=== PATIENT | female | born 1940 | race Caucasian/White ===

== ENCOUNTER → 2016-08-16 | Outpatient (REF) | payer MEDICARE, OTHER ==
[~2016-08-16] MED LIST: ASPI81TA85 PO; ATEN50TA2 PO; BENI20TA5 PO; HYDR12CA PO; METF500T PO; NIFE30TA66 PO; SIMV40TA2 PO; VITA500C14 PO; vitamin d
[2016-08-16 13:11] LABS: ALBUMIN 3.9 GM/DL (3.2-5.2); ALBUMIN/GLOBULIN RATIO 1.08 (1.00-1.93); ALKALINE PHOSPHATASE 51 U/L (45-117); ALT/SGPT 39 U/L (12-78); ANION GAP 11 MEQ/L (8-16); AST/SGOT 29 U/L (15-37); BILIRUBIN,TOTAL 0.6 MG/DL (0.2-1.0); BLOOD UREA NITROGEN 13 MG/DL (7-18); CALCIUM LEVEL 9.1 MG/DL (8.8-10.2); CARBON DIOXIDE LEVEL 28 MEQ/L (21-32); CHLORIDE LEVEL 104 MEQ/L (98-107); CHOLESTEROL LEVEL 167 MG/DL (<200); CREATININE FOR GFR 0.72 MG/DL (0.55-1.02); GLOMERULAR FILTRATION RATE > 60.0 (>39); GLUCOSE, FASTING 141 MG/DL (83-110); POTASSIUM SERUM 4.2 MEQ/L (3.5-5.1); SODIUM LEVEL 143 MEQ/L (136-145); TOTAL PROTEIN 7.5 GM/DL (6.4-8.2); TRIGLYCERIDES LEVEL 169 MG/DL (<150)
== END ==
LOC: M SFHCADAM 08:21
PROVIDERS: ATTEND Family Medicine
DX: E11.9 Type 2 diabetes mellitus without complications (principal); E78.4 Other hyperlipidemia

== ENCOUNTER → 2017-01-01 | Outpatient (CLI) | payer MEDICARE, OTHER ==
[2017-01-01 16:20] LABS: BASO # 0.1 K/mm3 (0.0-0.2); BASO % 0.6 % (0.0-1.0); EOS # 0.2 K/mm3 (0.0-0.50); EOS % 1.4 % (0.0-3.0); LARGE UNSTAINED CELL # 0.2 K/mm3 (0.0-0.4); LARGE UNSTAINED CELL % 1.6 % (0.0-4.0); LYMPH # 2.5 K/mm3 (1.5-4.5); LYMPH % 23.2 % (24.0-44.0); MEAN CORPUSCULAR HEMOGLOBIN 32.3 pg (27.0-33.0); MEAN CORPUSCULAR HGB CONC 33.3 g/dl (32.0-36.5); MEAN CORPUSCULAR VOLUME 97.1 fl (80.0-96.0); MONO # 0.7 K/mm3 (0.0-0.8); MONO % 6.9 % (0.0-5.0); NEUTROPHILS # 6.8 K/mm3 (1.8-7.7); NEUTROPHILS % 66.3 % (36.0-66.0); PLATELET COUNT, AUTOMATED 367 k/mm3 (150-450); RED CELL DISTRIBUTION WIDTH 12.3 % (11.5-14.5); WHITE BLOOD COUNT 10.2 K/mm3 (4.0-10.0)
[2017-01-01 16:39] LABS: ALBUMIN 3.9 GM/DL (3.2-5.2); ALBUMIN/GLOBULIN RATIO 0.93 (1.00-1.93); ALKALINE PHOSPHATASE 64 U/L (45-117); ALT/SGPT 56 U/L (12-78); ANION GAP 13 MEQ/L (8-16); AST/SGOT 52 U/L (15-37); BILIRUBIN,TOTAL 0.3 MG/DL (0.2-1.0); BLOOD UREA NITROGEN 15 MG/DL (7-18); CALCIUM LEVEL 9.8 MG/DL (8.8-10.2); CARBON DIOXIDE LEVEL 27 MEQ/L (21-32); CHLORIDE LEVEL 99 MEQ/L (98-107); CREATININE FOR GFR 0.87 MG/DL (0.55-1.02); GLOMERULAR FILTRATION RATE > 60.0 (>39); GLUCOSE, FASTING 194 MG/DL (83-110); MAGNESIUM LEVEL 1.8 MG/DL (1.8-2.4); POTASSIUM SERUM 3.7 MEQ/L (3.5-5.1); SODIUM LEVEL 139 MEQ/L (136-145); TOTAL PROTEIN 8.1 GM/DL (6.4-8.2)
== END ==
LOC: M ADAMS 13:02
PROVIDERS: ATTEND Physician Assistant
DX: R53.83 Other fatigue (principal)

== ENCOUNTER → 2017-01-19 | Outpatient (CLI) | payer MEDICARE, OTHER ==
[~2017-01-19] MED LIST changes: +BENI1TAB PO; -BENI20TA5 PO; -METF500T PO; +METF500T13 PO
--- NOTE | 2017-01-21 20:01 | ECHO ---
DATE OF PROCEDURE: 01/21/2017 REFERRING PROVIDER: Layla Peguero DO PATIENT LOCATION: Outpatient REASON FOR ECHOCARDIOGRAM: Abnormal EKG 2D MEASUREMENTS: IVS: 1.3 cm LV: 4.1 cm LVPW: 1.4 cm LA: 3.0 Aortic root: 3.0 cm IVC: 1.5 cm DOPPLER MEASUREMENTS: Peak velocity across the aortic valve: 1.5 m/s Peak velocity across the LVOT: 0.85 m/s Mitral E: 0.78 Mitral A: 0.95 Ratio 0.81 2D COMMENTS: 1. Mildly increased left ventricular wall thickness with normal left ventricular size and normal global left ventricular systolic function. The estimated global left ventricular systolic ejection fraction is 65% to 70%. 2. Normal left atrium. Normal right atrium and right ventricle. 3. The atrial septum appeared to be normal without evidence of defect or shunt. 4. Normal aortic root. 5. Trace pericardial effusion noted posteriorly at the base of the left ventricle, no evidence of cardiac tamponade. 6. Minimally calcified aortic valve with normal leaflet excursion. Normal mitral valve and tricuspid valve. The pulmonic valve and proximal pulmonary artery branches were not well visualized. 7. The inferior vena cava was normal in size, central venous pressure is most likely normal. DOPPLER: Only trace mitral regurgitation detected in limited views. IMPRESSION: 1. Normal global left ventricular systolic function with mild concentric left ventricular hypertrophy. There are some features of left ventricular diastolic dysfunction, grade 1. 2. Aortic valve sclerosis without stenosis or aortic regurgitation. 3. Trace mitral regurgitation. 4. Trace pericardial effusion noted, no evidence of cardiac tamponade. [facility]
== END ==
LOC: M CARPUL 15:08
PROVIDERS: ATTEND Family Medicine
DX: R94.31 Abnormal electrocardiogram [ECG] [EKG] (principal)

== ENCOUNTER → 2017-03-01 | Outpatient (REF) | payer OTHER ==
[2017-03-01 12:33] LABS: ANION GAP 9 MEQ/L (8-16); BLOOD UREA NITROGEN 16 MG/DL (7-18); CALCIUM LEVEL 8.9 MG/DL (8.8-10.2); CARBON DIOXIDE LEVEL 27 MEQ/L (21-32); CHLORIDE LEVEL 106 MEQ/L (98-107); CREATININE FOR GFR 0.62 MG/DL (0.55-1.02); GLOMERULAR FILTRATION RATE > 60.0 (>39); GLUCOSE, FASTING 146 MG/DL (83-110); POTASSIUM SERUM 4.1 MEQ/L (3.5-5.1); SODIUM LEVEL 142 MEQ/L (136-145)
== END ==
LOC: M SFHCADAM 09:32
PROVIDERS: ATTEND Family Medicine
DX: E11.9 Type 2 diabetes mellitus without complications (principal); D69.2 Other nonthrombocytopenic purpura; E78.4 Other hyperlipidemia; I11.9 Hypertensive heart disease without heart failure
CPT/HCPCS: 80048; 83036; G0463

== ENCOUNTER → 2017-08-23 | Outpatient (REF) | payer OTHER ==
[2017-08-23 12:36] LABS: HEMATOCRIT 45.3 % (36.0-47.0); MEAN CORPUSCULAR HEMOGLOBIN 31.5 pg (27.0-33.0); MEAN CORPUSCULAR HGB CONC 33.1 g/dl (32.0-36.5); MEAN CORPUSCULAR VOLUME 95.2 fl (80.0-96.0); PLATELET COUNT, AUTOMATED 346 10^3/uL (150-450); RED BLOOD COUNT 4.76 10^6/uL (4.00-5.40); RED CELL DISTRIBUTION WIDTH 12.6 % (11.5-14.5); WHITE BLOOD COUNT 7.9 10^3/uL (4.0-10.0)
[2017-08-23 13:08] LABS: ALBUMIN 3.6 GM/DL (3.2-5.2); ALBUMIN/GLOBULIN RATIO 0.92 (1.00-1.93); ALKALINE PHOSPHATASE 51 U/L (45-117); ALT/SGPT 22 U/L (12-78); ANION GAP 10 MEQ/L (8-16); AST/SGOT 19 U/L (7-37); BILIRUBIN,TOTAL 0.5 MG/DL (0.2-1.0); BLOOD UREA NITROGEN 14 MG/DL (7-18); CARBON DIOXIDE LEVEL 30 MEQ/L (21-32); CHLORIDE LEVEL 102 MEQ/L (98-107); CHOLESTEROL LEVEL 166 MG/DL (<200); CHOLESTEROL RISK RATIO 3.458 (<5); GLOMERULAR FILTRATION RATE > 60.0 (>39); GLUCOSE, FASTING 165 MG/DL (70-100); HDL CHOLESTEROL 48 MG/DL (>40); LDL CHOLESTEROL 73.2 MG/DL (<100); NON-HDL-C 118 MG/DL; POTASSIUM SERUM 4.3 MEQ/L (3.5-5.1); SODIUM LEVEL 142 MEQ/L (136-145); TOTAL PROTEIN 7.5 GM/DL (6.4-8.2); TRIGLYCERIDES LEVEL 224 MG/DL (<150)
[2017-08-23 13:18] LABS: MALB URINE SIEMENS 36.9 MG/L; MAU/CREAT RATIO 16.6 MCG/MG (0.0-30.0)
[2017-08-23 13:28] LABS: ESTIMATED AVERAGE GLUCOSE 206 MG/DL (60-110); HEMOGLOBIN A1c 8.8 %
== END ==
LOC: M SFHCADAM 08:19
DX: D69.2 Other nonthrombocytopenic purpura (principal); E11.9 Type 2 diabetes mellitus without complications; E78.4 Other hyperlipidemia
CPT/HCPCS: 80053

== ENCOUNTER → 2017-11-21 | Outpatient (REF) | payer OTHER ==
[2017-11-21 14:02] LABS: ESTIMATED AVERAGE GLUCOSE 194 MG/DL (60-110); HEMOGLOBIN A1c 8.4 %
[2017-11-21 14:05] LABS: ANION GAP 9 MEQ/L (8-16); BLOOD UREA NITROGEN 16 MG/DL (7-18); CALCIUM LEVEL 9.8 MG/DL (8.8-10.2); CARBON DIOXIDE LEVEL 27 MEQ/L (21-32); CHLORIDE LEVEL 103 MEQ/L (98-107); CREATININE FOR GFR 0.73 MG/DL (0.55-1.30); GLOMERULAR FILTRATION RATE > 60.0 (>39); GLUCOSE, FASTING 231 MG/DL (70-100); POTASSIUM SERUM 4.1 MEQ/L (3.5-5.1); SODIUM LEVEL 139 MEQ/L (136-145)
== END ==
LOC: M SFHCADAM 09:35
DX: E11.9 Type 2 diabetes mellitus without complications (principal)
CPT/HCPCS: 83036

== ENCOUNTER → 2018-08-14 | Outpatient (REF) | payer OTHER ==
[~2018-08-14] MED LIST changes: -BENI1TAB PO; +BENI1TAB3 PO; +NIFE30TA50 PO; -NIFE30TA66 PO
[2018-08-14 13:47] LABS: MAU/CREAT RATIO 43.1 MCG/MG (0.0-30.0)
[2018-08-14 13:58] LABS: HEMOGLOBIN A1c 7.4 %
[2018-08-14 14:08] LABS: BLOOD UREA NITROGEN 15 MG/DL (7-18); CALCIUM LEVEL 9.4 MG/DL (8.8-10.2); CARBON DIOXIDE LEVEL 29 MEQ/L (21-32); CHLORIDE LEVEL 102 MEQ/L (98-107); CREATININE FOR GFR 0.78 MG/DL (0.55-1.30); GLOMERULAR FILTRATION RATE > 60.0 (>39); GLUCOSE, FASTING 118 MG/DL (70-100); POTASSIUM SERUM 4.1 MEQ/L (3.5-5.1); SODIUM LEVEL 141 MEQ/L (136-145)
[2018-08-14 14:09] LABS: ALBUMIN 3.6 GM/DL (3.2-5.2); ALT/SGPT 27 U/L (12-78); BILIRUBIN,TOTAL 0.4 MG/DL (0.2-1.0); CHOLESTEROL LEVEL 140 MG/DL (<200); CHOLESTEROL RISK RATIO 3.111 (<5); HDL CHOLESTEROL 45 MG/DL (>40); LDL CHOLESTEROL 35 MG/DL (<100); NON-HDL-C 95 MG/DL; TOTAL PROTEIN 6.9 GM/DL (6.4-8.2); TRIGLYCERIDES LEVEL 299 MG/DL (<150)
== END ==
LOC: M SFHCADAM 10:53
PROVIDERS: ATTEND Family Medicine
DX: E11.9 Type 2 diabetes mellitus without complications (principal); E78.49 Other hyperlipidemia

== ENCOUNTER → 2019-03-05 | Outpatient (REF) | payer MEDICARE ==
[~2019-03-05] MED LIST changes: +METF10004 PO; +VITA-158 PO
[2019-03-05 19:48] LABS: BLOOD UREA NITROGEN 22 MG/DL (7-18); CALCIUM LEVEL 9.8 MG/DL (8.8-10.2); CARBON DIOXIDE LEVEL 28 MEQ/L (21-32); CHLORIDE LEVEL 103 MEQ/L (98-107); CREATININE FOR GFR 0.81 MG/DL (0.55-1.30); GLOMERULAR FILTRATION RATE > 60.0 (>39); GLUCOSE, FASTING 156 MG/DL (70-100); POTASSIUM SERUM 4.4 MEQ/L (3.5-5.1); SODIUM LEVEL 139 MEQ/L (136-145)
[2019-03-05 20:42] LABS: HEMOGLOBIN A1c 6.6 %
== END ==
LOC: M SFHCADAM 13:58
PROVIDERS: ATTEND Family Medicine
DX: E11.9 Type 2 diabetes mellitus without complications (principal)

== ENCOUNTER → 2019-09-13 | Outpatient (REF) | payer MEDICARE ==
[~2019-09-13] MED LIST changes: -SIMV40TA2 PO; +SIMV40TA20 PO
[2019-09-13 13:14] LABS: CREATININE, URINE 77.4 MG/DL; MALB URINE SIEMENS 15.5 MG/L
[2019-09-13 13:36] LABS: HEMOGLOBIN A1c 6.6 %
[2019-09-13 13:39] LABS: ALBUMIN 3.9 GM/DL (3.2-5.2); ALT/SGPT 24 U/L (12-78); BILIRUBIN,TOTAL 0.6 MG/DL (0.2-1.0); BLOOD UREA NITROGEN 16 MG/DL (7-18); CALCIUM LEVEL 10.2 MG/DL (8.8-10.2); CARBON DIOXIDE LEVEL 29 MEQ/L (21-32); CHLORIDE LEVEL 101 MEQ/L (98-107); CHOLESTEROL LEVEL 144 MG/DL (<200); CHOLESTEROL RISK RATIO 2.823 (<5); CREATININE FOR GFR 0.62 MG/DL (0.55-1.30); GLOMERULAR FILTRATION RATE > 60.0 (>39); GLUCOSE, FASTING 100 MG/DL (70-100); HDL CHOLESTEROL 51 MG/DL (>40); LDL CHOLESTEROL 64 MG/DL (<100); NON-HDL-C 93 MG/DL; POTASSIUM SERUM 4.1 MEQ/L (3.5-5.1); SODIUM LEVEL 139 MEQ/L (136-145); TOTAL PROTEIN 7.7 GM/DL (6.4-8.2); TRIGLYCERIDES LEVEL 144 MG/DL (<150)
== END ==
LOC: M SFHCADAM 08:32
PROVIDERS: ATTEND Family Medicine
DX: E11.9 Type 2 diabetes mellitus without complications (principal); E78.5 Hyperlipidemia, unspecified

== ENCOUNTER → 2020-03-24 | Outpatient (REF) | payer MEDICARE ==
[~2020-03-24] MED LIST changes: -ASPI81TA85 PO; +ASPI81TA86 PO
[2020-03-24 12:53] LABS: BLOOD UREA NITROGEN 17 MG/DL (7-18); CARBON DIOXIDE LEVEL 28 MEQ/L (21-32); CHLORIDE LEVEL 103 MEQ/L (98-107); CREATININE FOR GFR 0.64 MG/DL (0.55-1.30); GLOMERULAR FILTRATION RATE > 60.0 (>39); GLUCOSE, FASTING 145 MG/DL (70-100); POTASSIUM SERUM 4.4 MEQ/L (3.5-5.1); SODIUM LEVEL 140 MEQ/L (136-145)
[2020-03-24 13:02] LABS: HEMOGLOBIN A1c 6.6 %
== END ==
LOC: M SFHCADAM 12:10
PROVIDERS: ATTEND Family Medicine
DX: I11.9 Hypertensive heart disease without heart failure (principal)

== ENCOUNTER → 2020-11-03 | Outpatient (REF) | payer MEDICARE ==
[2020-11-03 17:42] LABS: HEMATOCRIT 45.4 % (36.0-47.0); HEMOGLOBIN 14.7 g/dl (12.0-15.5); MEAN CORPUSCULAR HEMOGLOBIN 31.2 pg (27.0-33.0); MEAN CORPUSCULAR HGB CONC 32.4 g/dl (32.0-36.5); MEAN CORPUSCULAR VOLUME 96.4 fl (80.0-96.0); PLATELET COUNT, AUTOMATED 385 10^3/uL (150-450); RED BLOOD COUNT 4.71 10^6/uL (4.00-5.40); WHITE BLOOD COUNT 8.2 10^3/uL (4.0-10.0)
[2020-11-03 18:05] LABS: ALBUMIN 3.9 GM/DL (3.2-5.2); ALT/SGPT 36 U/L (12-78); BILIRUBIN,TOTAL 0.4 MG/DL (0.2-1.0); BLOOD UREA NITROGEN 14 MG/DL (7-18); CALCIUM LEVEL 9.8 MG/DL (8.8-10.2); CARBON DIOXIDE LEVEL 28 MEQ/L (21-32); CHLORIDE LEVEL 101 MEQ/L (98-107); CHOLESTEROL LEVEL 153 MG/DL (<200); CREATININE FOR GFR 0.52 MG/DL (0.55-1.30); GLOMERULAR FILTRATION RATE > 60.0 (>39); GLUCOSE, FASTING 102 MG/DL (70-100); HDL CHOLESTEROL 51 MG/DL (>40); LDL CHOLESTEROL 63 MG/DL (<100); NON-HDL-C 102 MG/DL; POTASSIUM SERUM 4.3 MEQ/L (3.5-5.1); SODIUM LEVEL 140 MEQ/L (136-145); TOTAL PROTEIN 7.8 GM/DL (6.4-8.2); TRIGLYCERIDES LEVEL 197 MG/DL (<150)
[2020-11-03 18:17] LABS: CREATININE, URINE 76.4 MG/DL; MALB URINE SIEMENS 32.7 MG/L; MAU/CREAT RATIO 42.8 MCG/MG (0.0-30.0)
[2020-11-03 18:29] LABS: HEMOGLOBIN A1c 6.8 %
== END ==
LOC: M SFHCADAM 11:46
PROVIDERS: ATTEND Family Medicine
DX: I11.9 Hypertensive heart disease without heart failure (principal); E11.9 Type 2 diabetes mellitus without complications; E78.5 Hyperlipidemia, unspecified

== ENCOUNTER → 2021-04-24 | Outpatient (REF) | payer MEDICARE ==
[2021-04-24 13:21] LABS: BLOOD UREA NITROGEN 12 MG/DL (7-18); CALCIUM LEVEL 9.7 MG/DL (8.8-10.2); CARBON DIOXIDE LEVEL 28 MEQ/L (21-32); CHLORIDE LEVEL 104 MEQ/L (98-107); CREATININE FOR GFR 0.64 MG/DL (0.55-1.30); GLOMERULAR FILTRATION RATE > 60.0 (>32); GLUCOSE, FASTING 118 MG/DL (70-100); POTASSIUM SERUM 4.7 MEQ/L (3.5-5.1); SODIUM LEVEL 140 MEQ/L (136-145)
[2021-04-24 13:26] LABS: HEMOGLOBIN A1c 6.8 %
== END ==
LOC: M SFHCADAM 08:21
PROVIDERS: ATTEND Family Medicine
DX: E11.9 Type 2 diabetes mellitus without complications (principal)

== ENCOUNTER 2021-09-12 13:22 | Inpatient (IN) | payer MEDICARE ==
[~2021-09-12] VITALS: Ht 160 cm; Wt 95.0 kg
[2021-09-12] MEDS ORDERED: NS 1,000 ML IV SCH ×2 (13:45→19:00)
[2021-09-12 14:24] LABS: BASO % 0.1 % (0.0-1.0); HEMATOCRIT 43.4 % (36.0-47.0); HEMOGLOBIN 14.5 g/dl (12.0-15.5); LYMPH # 0.7 10^3/uL (1.5-5.0); LYMPH % 4.9 % (24.0-44.0); MEAN CORPUSCULAR HEMOGLOBIN 31.1 pg (27.0-33.0); MEAN CORPUSCULAR HGB CONC 33.4 g/dl (32.0-36.5); MEAN CORPUSCULAR VOLUME 93.1 fl (80.0-96.0); MONO % 6.9 % (2.0-8.0); NEUTROPHILS # 12.6 10^3/uL (1.5-8.5); NEUTROPHILS % 87.3 % (36.0-66.0); PLATELET COUNT, AUTOMATED 269 10^3/uL (150-450); RED BLOOD COUNT 4.66 10^6/uL (4.00-5.40); WHITE BLOOD COUNT 14.5 10^3/uL (4.0-10.0)
[2021-09-12] MEDS ORDERED: LOSA100T45 PO (14:57)
[2021-09-12] MEDS ORDERED: NORV5TAB PO (14:57)
[2021-09-12] MEDS ORDERED: MED NOTE (14:59)
[2021-09-12] MEDS ORDERED: HOME MED LIST COMPLETE! XX SCH (15:00)
[2021-09-12 15:05] LABS: OSMOLALITY SERUM 281 MOSM/KG (280-301)
[2021-09-12 15:40] LABS: ALBUMIN 2.9 GM/DL (3.2-5.2); ALT/SGPT 22 U/L (12-78); BILIRUBIN,DIRECT 0.2 MG/DL (0.0-0.2); BILIRUBIN,TOTAL 1.1 MG/DL (0.2-1.0); BLOOD UREA NITROGEN 17 MG/DL (7-18); CALCIUM LEVEL 9.3 MG/DL (8.8-10.2); CARBON DIOXIDE LEVEL 25 MEQ/L (21-32); CHLORIDE LEVEL 95 MEQ/L (98-107); CREATININE FOR GFR 0.75 MG/DL (0.55-1.30); GLOMERULAR FILTRATION RATE > 60.0 (>32); GLUCOSE, FASTING 178 MG/DL (70-100); POTASSIUM SERUM 4.4 MEQ/L (3.5-5.1); SODIUM LEVEL 132 MEQ/L (136-145); THYROID STIMULATING HORMONE 0.685 uIU/ML (0.358-3.740)
[2021-09-12 16:17] LABS: RSV AMPLIFICATION NEGATIVE (NEGATIVE)
[2021-09-12] MEDS ORDERED: cefTRIAXone SOD 2 GM in D5W MINI-BAG PLUS 50 ML IV ONE (16:55)
[2021-09-12] MEDS ORDERED: GLUCAGON INJ 1MG VIAL SC PRN (17:10)
[2021-09-12] MEDS ORDERED: GLUCOSE 4GM CHEW TABLET PO PRN (17:10)
[2021-09-12] MEDS ORDERED: DEXTROSE 50% 50 ML SYRINGE IV PRN (17:10)
[2021-09-12] MEDS ORDERED: HumaLOG INSULIN (NovoLOG) PER UNIT SC SCH ×2 (17:30→21:00)
[2021-09-12] MEDS ORDERED: atenoloL 25 MG TAB PO ONE (17:30)
[2021-09-12] MEDS ORDERED: metFORMIN (GLUCOPHAGE) 1000 MG TABLET PO SCH (18:00)
[2021-09-12] MEDS ORDERED: ACETAMINOPHEN TAB 650MG DOSE (2X325MG) PO ONE (19:10)
[2021-09-12 20:38] VITALS: BP 126/66
[2021-09-12] MEDS: **hydrALAZINE** 10 MG TAB PO SCH (21:05)
[2021-09-12] MEDS: LACTOBACILLUS ACIDOPHILUS CAP (BACID) PO SCH ×2 (21:05→21:50)
[2021-09-12] MEDS: SIMVASTATIN 40 MG TAB PO SCH (21:50)
[2021-09-12 23:58] VITALS: BP 149/87
[2021-09-13] VITALS (9 sets, daily range): BP systolic 115–156; BP diastolic 58–94
[2021-09-13] MEDS ORDERED: HumaLOG INSULIN (NovoLOG) PER UNIT SC SCH
[2021-09-13] MEDS: **hydrALAZINE** 10 MG TAB PO SCH ×5 (00:01→22:15)
[2021-09-13] MEDS: METOPROLOL TART 25 MG TABLET PO SCH ×5 (00:02→22:15)
[2021-09-13] MEDS: ACETAMINOPHEN TAB 650MG DOSE (2X325MG) PO PRN (00:29)
[2021-09-13 01:39] LABS: VENOUS BASE EXCESS 1.5 (-2.0-2.0); VENOUS HCO3 23.6 MEQ/L (23.0-27.0); VENOUS O2 SATURATION 90.6 % (60.0-80.0); VENOUS PARTIAL PRESSURE CO2 30.2 mmHg (38.0-50.0); VENOUS PARTIAL PRESSURE O2 55.3 mmHg (30.0-50.0); VENOUS PH 7.511 UNITS (7.330-7.430); VENOUS STANDARD HCO3 25.7 MEQ/L; VENOUS TOTAL CO2 24.5 MEQ/L (24.0-28.0)
[2021-09-13] MEDS ORDERED: IPRATROPIUM 0.5MG/ALBUTEROL 2.5MG INH SOL UD 3ML (DUONEB) NEB PRN (01:40)
[2021-09-13] MEDS: KETOROLAC 30 MG/ML 1ML VIAL IV ONE ×2 (04:08→04:29)
[2021-09-13] MEDS ORDERED: FUROSEMIDE 20MG/2ML VIAL (J1940) IV ONE (05:40)
[2021-09-13 05:58] LABS: HEMOGLOBIN 13.7 g/dl (12.0-15.5); MEAN CORPUSCULAR HEMOGLOBIN 31.5 pg (27.0-33.0); MEAN CORPUSCULAR HGB CONC 33.4 g/dl (32.0-36.5); MEAN CORPUSCULAR VOLUME 94.3 fl (80.0-96.0); PLATELET COUNT, AUTOMATED 229 10^3/uL (150-450); RED BLOOD COUNT 4.35 10^6/uL (4.00-5.40); WHITE BLOOD COUNT 8.7 10^3/uL (4.0-10.0)
[2021-09-13 06:06] LABS: BASO % 0.2 % (0.0-1.0); LYMPH # 0.3 10^3/uL (1.5-5.0); LYMPH % 3.7 % (24.0-44.0); MONO # 0.2 10^3/uL (0.0-0.8); MONO % 2.5 % (2.0-8.0); NEUTROPHILS # 8.3 10^3/uL (1.5-8.5); NEUTROPHILS % 92.4 % (36.0-66.0)
[2021-09-13 06:16] LABS: HEMOGLOBIN A1c 7.3 %
[2021-09-13 06:48] LABS: BLOOD UREA NITROGEN 17 MG/DL (7-18); CALCIUM LEVEL 8.5 MG/DL (8.8-10.2); CARBON DIOXIDE LEVEL 25 MEQ/L (21-32); CHLORIDE LEVEL 101 MEQ/L (98-107); CREATININE FOR GFR 0.78 MG/DL (0.55-1.30); GLOMERULAR FILTRATION RATE > 60.0 (>32); GLUCOSE, FASTING 207 MG/DL (70-100); SODIUM LEVEL 136 MEQ/L (136-145)
[2021-09-13 06:49] LABS: ALBUMIN 2.5 GM/DL (3.2-5.2); ALT/SGPT 23 U/L (12-78); BILIRUBIN,TOTAL 0.8 MG/DL (0.2-1.0); BLOOD UREA NITROGEN 17 MG/DL (7-18); CALCIUM LEVEL 8.8 MG/DL (8.8-10.2); CARBON DIOXIDE LEVEL 26 MEQ/L (21-32); CHLORIDE LEVEL 100 MEQ/L (98-107); CREATININE FOR GFR 0.77 MG/DL (0.55-1.30); GLOMERULAR FILTRATION RATE > 60.0 (>32); GLUCOSE, FASTING 212 MG/DL (70-100); POTASSIUM SERUM 2.8 MEQ/L (3.5-5.1); SODIUM LEVEL 135 MEQ/L (136-145); TOTAL PROTEIN 7.2 GM/DL (6.4-8.2)
[2021-09-13 07:02] LABS: EOSINOPHILS 1 % (0-3); LYMPHOCYTES 2 % (16-44); MONOCYTES 2 % (0-5); NEUTROPHILS 81 % (28-66)
[2021-09-13 07:06] LABS: PLATELET ESTIMATE NORMAL (NORMAL)
[2021-09-13 07:09] LABS: PLATELET CLUMPS SMALL AMT; POLYCHROMASIA 1+
[2021-09-13] MEDS: POTASSIUM CHLORIDE 10MEQ SR TABLET PO SCH ×2 (07:27→08:32)
[2021-09-13] MEDS: LACTOBACILLUS ACIDOPHILUS CAP (BACID) PO SCH ×4 (07:27→22:12)
[2021-09-13] MEDS: cefTRIAXone SOD 2 GM in D5W MINI-BAG PLUS 50 ML IV SCH (08:32)
[2021-09-13] MEDS ORDERED: cefTRIAXone SOD 1 GM in D5W MINI-BAG PLUS 50 ML IV SCH (09:00)
[2021-09-13] MEDS ORDERED: LOSARTAN 50MG TABLET PO SCH (09:00)
[2021-09-13] MEDS ORDERED: amLODIPine 5 MG TAB PO SCH (09:00)
[2021-09-13] MEDS ORDERED: atenoloL 50 MG TAB PO SCH (09:00)
[2021-09-13] MEDS ORDERED: KCL 40MEQ IN D5/0.45NS 1000ML 1,000 ML IV SCH (09:25)
[2021-09-13] MEDS ORDERED: LIDOCAINE 2% 100MG/5ML SDV (FOR ANES.) As Ordered ONE (11:56)
[2021-09-13] MEDS ORDERED: propofoL 200 MG/20 ML VIAL As Ordered ONE (11:56)
[2021-09-13] MEDS ORDERED: fentaNYL 100 MCG/2 ML INJECTION As Ordered ONE (11:56)
[2021-09-13] MEDS ORDERED: MIDAZOLAM INJ 2MG/2ML VIAL (J2250 PER 1MG) As Ordered ONE (11:56)
[2021-09-13] MEDS ORDERED: CONRAY-60 60% 50ML VIAL (Q9961) As Ordered ONE (12:18)
[2021-09-13] MEDS ORDERED: LIDOCAINE 2% 5ML JELLY UROJET As Ordered ONE (12:18)
[2021-09-13] MEDS ORDERED: ceFAZolin 2 GM/D5W 50 ML IV BAG (J0690 PER 500MG) As Ordered ONE (12:33)
[2021-09-13 13:33] LABS: APPEARANCE, URINE CLOUDY (CLEAR); BACTERIA, URINE AUTO 1+ (NEGATIVE); BILIRUBIN, URINE AUTO NEGATIVE (NEGATIVE); BLOOD, URINE BLOOD 2+ (NEGATIVE); COLOR, URINE AMBER (YELLOW); GLUCOSE, URINE (UA) AUTO 1+ mg/dL (NEGATIVE); KETONE, URINE AUTO 1+ mg/dL (NEGATIVE); LEUKOCYTE ESTERASE, URINE AUTO 3+ (NEGATIVE); MUCUS, URINE SMALL (NEGATIVE); NITRITE, URINE AUTO NEGATIVE (NEGATIVE); PROTEIN, URINE AUTO 2+ mg/dL (NEGATIVE); RBC, URINE AUTO 72 /HPF (0-3); SPECIFIC GRAVITY URINE AUTO 1.019 (1.002-1.035); SQUAMOUS EPITHELIAL CELL UR AU 0 /HPF (0-6); UROBILINOGEN, URINE AUTO 0.2 mg/dL (0.0-2.0); WBC, URINE AUTO TNTC /HPF (0-3)
[2021-09-13 15:05] LABS: POTASSIUM SERUM 3.6 MEQ/L (3.5-5.1)
[2021-09-13] MEDS: VANCOMYCIN HCL 1,000 MG, VIAL MATE ADAPTER 1 EACH in NS 250 ML IV SCH (15:27)
[2021-09-13] MEDS ORDERED: ACETAMINOPHEN 500 MG TAB PO ONE (16:00)
[2021-09-13] MEDS: HumaLOG INSULIN (NovoLOG) PER UNIT SC SCH ×2 (17:25→21:00)
[2021-09-13 18:56] LABS: ABG BASE EXCESS 1.5 (-2.0-2.0); ABG HCO3 24.3 MEQ/L (22.0-26.0); ABG PARTIAL PRESSURE CO2 32.7 mmHg (35.0-45.0); ABG PARTIAL PRESSURE O2 142.9 mmHg (75.0-100.0); ABG STANDARD HCO3 25.9 MEQ/L (22.0-26.0); ABG TOTAL CO2 25.3 MEQ/L (23.0-31.0); ABG pH (ARTERIAL) 7.489 UNITS (7.350-7.450)
[2021-09-13 19:46] LABS: CK-MB VALUE MASS < 1.0 NG/ML (<3.6); CPK CREATINE PHOSPHOKINASE 148 U/L (26-192); MB/CK RELATIVE INDEX 0.68 (< OR =4)
[2021-09-13] MEDS: SIMVASTATIN 40 MG TAB PO SCH (22:13)
[2021-09-14] MEDS: VANCOMYCIN HCL 1,000 MG, VIAL MATE ADAPTER 1 EACH in NS 250 ML IV SCH ×2 (02:48→13:48)
[2021-09-14 05:32] VITALS: BP 134/75
[2021-09-14] MEDS: METOPROLOL TART 25 MG TABLET PO SCH ×3 (05:33→17:46)
[2021-09-14] MEDS: **hydrALAZINE** 10 MG TAB PO SCH ×3 (05:33→17:46)
[2021-09-14 06:05] LABS: HEMATOCRIT 40.5 % (36.0-47.0); HEMOGLOBIN 13.4 g/dl (12.0-15.5); MEAN CORPUSCULAR HGB CONC 33.1 g/dl (32.0-36.5); MEAN CORPUSCULAR VOLUME 93.8 fl (80.0-96.0); PLATELET COUNT, AUTOMATED 252 10^3/uL (150-450); RED BLOOD COUNT 4.32 10^6/uL (4.00-5.40); WHITE BLOOD COUNT 8.7 10^3/uL (4.0-10.0)
[2021-09-14 06:15] LABS: BLOOD UREA NITROGEN 21 MG/DL (7-18); CALCIUM LEVEL 8.5 MG/DL (8.8-10.2); CARBON DIOXIDE LEVEL 26 MEQ/L (21-32); CHLORIDE LEVEL 104 MEQ/L (98-107); CREATININE FOR GFR 0.52 MG/DL (0.55-1.30); GLOMERULAR FILTRATION RATE > 60.0 (>32); GLUCOSE, FASTING 159 MG/DL (70-100); POTASSIUM SERUM 3.5 MEQ/L (3.5-5.1); SODIUM LEVEL 137 MEQ/L (136-145)
[2021-09-14 06:31] LABS: BASO % 0.3 % (0.0-1.0); EOS # 0.1 10^3/uL (0.0-0.5); EOS % 0.6 % (0.0-3.0); LYMPH # 0.9 10^3/uL (1.5-5.0); LYMPH % 9.6 % (24.0-44.0); MONO % 11.7 % (2.0-8.0); NEUTROPHILS # 6.9 10^3/uL (1.5-8.5); NEUTROPHILS % 77.4 % (36.0-66.0)
[2021-09-14 06:59] LABS: BASOPHILS 1 % (0-1); EOSINOPHILS 1 % (0-3); LYMPHOCYTES 11 % (16-44); MONOCYTES 10 % (0-5); NEUTROPHILS 77 % (28-66); PLATELET ESTIMATE NORMAL (NORMAL)
[2021-09-14] MEDS: cefTRIAXone SOD 2 GM in D5W MINI-BAG PLUS 50 ML IV SCH (07:54)
[2021-09-14] MEDS: LACTOBACILLUS ACIDOPHILUS CAP (BACID) PO SCH ×4 (07:54→20:31)
[2021-09-14] MEDS: HumaLOG INSULIN (NovoLOG) PER UNIT SC SCH ×4 (07:55→20:31)
[2021-09-14] MEDS: ACETAMINOPHEN TAB 650MG DOSE (2X325MG) PO PRN ×2 (08:01→14:45)
[2021-09-14] MEDS: CIPROFLOXACIN 500MG TABLET PO SCH ×2 (09:04→17:43)
[2021-09-14 10:00] VITALS: BP 129/74
[2021-09-14 14:00] VITALS: BP 140/63
[2021-09-14] MEDS: SIMVASTATIN 40 MG TAB PO SCH (20:31)
[2021-09-14 22:00] VITALS: BP 146/67
[2021-09-15] MEDS: METOPROLOL TART 25 MG TABLET PO SCH ×4 (00:29→18:05)
[2021-09-15] MEDS: **hydrALAZINE** 10 MG TAB PO SCH ×4 (00:30→18:05)
[2021-09-15] MEDS: VANCOMYCIN HCL 1,000 MG, VIAL MATE ADAPTER 1 EACH in NS 250 ML IV SCH (01:52)
[2021-09-15] MEDS: CIPROFLOXACIN 500MG TABLET PO SCH ×2 (05:31→18:02)
[2021-09-15 05:33] LABS: BASO % 0.5 % (0.0-1.0); EOS # 0.2 10^3/uL (0.0-0.5); EOS % 1.8 % (0.0-3.0); HEMOGLOBIN 12.6 g/dl (12.0-15.5); LYMPH # 1.2 10^3/uL (1.5-5.0); LYMPH % 13.2 % (24.0-44.0); MEAN CORPUSCULAR HEMOGLOBIN 31.6 pg (27.0-33.0); MEAN CORPUSCULAR HGB CONC 34.1 g/dl (32.0-36.5); MEAN CORPUSCULAR VOLUME 92.7 fl (80.0-96.0); MONO # 1.3 10^3/uL (0.0-0.8); MONO % 14.5 % (2.0-8.0); NEUTROPHILS # 6.1 10^3/uL (1.5-8.5); NEUTROPHILS % 69.4 % (36.0-66.0); PLATELET COUNT, AUTOMATED 263 10^3/uL (150-450); RED BLOOD COUNT 3.99 10^6/uL (4.00-5.40); WHITE BLOOD COUNT 8.8 10^3/uL (4.0-10.0)
[2021-09-15 06:00] VITALS: BP 145/74
[2021-09-15 06:01] LABS: BLOOD UREA NITROGEN 18 MG/DL (7-18); CALCIUM LEVEL 8.4 MG/DL (8.8-10.2); CARBON DIOXIDE LEVEL 27 MEQ/L (21-32); CHLORIDE LEVEL 104 MEQ/L (98-107); CREATININE FOR GFR 0.63 MG/DL (0.55-1.30); GLOMERULAR FILTRATION RATE > 60.0 (>32); GLUCOSE, FASTING 186 MG/DL (70-100); POTASSIUM SERUM 3.3 MEQ/L (3.5-5.1); SODIUM LEVEL 139 MEQ/L (136-145)
[2021-09-15] MEDS ORDERED: POTASSIUM CHLORIDE 10MEQ SR TABLET PO ONE (07:40)
[2021-09-15] MEDS: HumaLOG INSULIN (NovoLOG) PER UNIT SC SCH ×4 (08:23→21:15)
[2021-09-15] MEDS: LACTOBACILLUS ACIDOPHILUS CAP (BACID) PO SCH ×4 (08:24→21:25)
[2021-09-15 08:25] VITALS: BP 145/74
[2021-09-15 11:18] VITALS: BP 142/78
[2021-09-15 12:49] LABS: VITAMIN B12 LEVEL 261 PG/ML (247-911)
[2021-09-15 14:00] VITALS: BP_SYST 140; BP_SYST 149; BP_DIAS 69; BP_DIAS 76
[2021-09-15 20:04] VITALS: BP 137/51
[2021-09-15] MEDS: SIMVASTATIN 40 MG TAB PO SCH (21:25)
[2021-09-16 04:42] VITALS: BP 143/63
[2021-09-16] MEDS: CIPROFLOXACIN 500MG TABLET PO SCH (05:13)
[2021-09-16 05:58] LABS: BASO # 0.1 10^3/uL (0.0-0.2); BASO % 0.6 % (0.0-1.0); EOS # 0.2 10^3/uL (0.0-0.5); EOS % 2.4 % (0.0-3.0); HEMATOCRIT 36.2 % (36.0-47.0); LYMPH # 1.3 10^3/uL (1.5-5.0); LYMPH % 16.6 % (24.0-44.0); MEAN CORPUSCULAR HEMOGLOBIN 30.8 pg (27.0-33.0); MEAN CORPUSCULAR HGB CONC 33.1 g/dl (32.0-36.5); MEAN CORPUSCULAR VOLUME 92.8 fl (80.0-96.0); MONO # 0.9 10^3/uL (0.0-0.8); MONO % 10.9 % (2.0-8.0); NEUTROPHILS # 5.6 10^3/uL (1.5-8.5); NEUTROPHILS % 68.6 % (36.0-66.0); PLATELET COUNT, AUTOMATED 298 10^3/uL (150-450); WHITE BLOOD COUNT 8.1 10^3/uL (4.0-10.0)
[2021-09-16 06:20] LABS: BLOOD UREA NITROGEN 14 MG/DL (7-18); CALCIUM LEVEL 8.5 MG/DL (8.8-10.2); CARBON DIOXIDE LEVEL 27 MEQ/L (21-32); CHLORIDE LEVEL 108 MEQ/L (98-107); CREATININE FOR GFR 0.58 MG/DL (0.55-1.30); GLOMERULAR FILTRATION RATE > 60.0 (>32); GLUCOSE, FASTING 164 MG/DL (70-100); POTASSIUM SERUM 3.2 MEQ/L (3.5-5.1); SODIUM LEVEL 141 MEQ/L (136-145)
[2021-09-16] MEDS: HumaLOG INSULIN (NovoLOG) PER UNIT SC SCH ×2 (07:37→11:57)
[2021-09-16] MEDS: LACTOBACILLUS ACIDOPHILUS CAP (BACID) PO SCH ×2 (07:37→11:57)
[2021-09-16] MEDS ORDERED: POTASSIUM CHLORIDE 10MEQ SR TABLET PO ONE (08:00)
[2021-09-16 08:18] VITALS: BP 129/75
[2021-09-16] MEDS ORDERED: atenoloL 50 MG TAB PO SCH (09:00)
[2021-09-16] MEDS ORDERED: LOSARTAN 50MG TABLET PO SCH (09:00)
[2021-09-16] MEDS ORDERED: CIPR-249 PO (10:32)
[2021-09-16] MEDS ORDERED: RISATAB3 PO (10:32)
== END 2021-09-16 14:05 | disposition home or self-care (01) | DRG 854 ==
LOC: M ED 13:22 → EDBD 13:22 → M ED INP 17:04 → ENRESERV 18:51 → M MSPAV 20:38
PROVIDERS: ADMIT General Practice; ATTEND Internal Medicine
PROC: 0T768DZ Dilation of Right Ureter with Intraluminal Device, Via Natural or Artificial Opening Endoscopic (ICD-10-PCS; principal; 2021-09-13 10:42)
DX: A41.51 Sepsis due to Escherichia coli [E. coli] (principal); N13.6 Pyonephrosis; N39.0 Urinary tract infection, site not specified; N20.1 Calculus of ureter; I16.0 Hypertensive urgency; E78.00 Pure hypercholesterolemia, unspecified; E03.9 Hypothyroidism, unspecified; K44.9 Diaphragmatic hernia without obstruction or gangrene; M19.90 Unspecified osteoarthritis, unspecified site; Z90.11 Acquired absence of right breast and nipple; Z85.3 Personal history of malignant neoplasm of breast; Z90.49 Acquired absence of other specified parts of digestive tract; M48.061 Spinal stenosis, lumbar region without neurogenic claudication; E66.9 Obesity, unspecified; Z68.37 Body mass index [BMI] 37.0-37.9, adult; Z20.822 Contact with and (suspected) exposure to COVID-19; R53.1 Weakness; Z79.84 Long term (current) use of oral hypoglycemic drugs; Z79.899 Other long term (current) drug therapy

== ENCOUNTER 2021-09-24 07:42 | Inpatient (IN) | payer MEDICARE ==
[~2021-09-24 07:42] MED LIST changes: +CIPR-249 PO; +LOSA100T45 PO; +MED NOTE; +NORV5TAB PO; +RISATAB3 PO
[2021-09-24] MEDS ORDERED: NS 1,000 ML IV SCH (07:55)
[2021-09-24] MEDS ORDERED: LIDOCAINE 2% 5ML JELLY UROJET TOP ONE (07:55)
[2021-09-24 08:34] LABS: BASO # 0.1 10^3/uL (0.0-0.2); BASO % 0.8 % (0.0-1.0); EOS # 0.2 10^3/uL (0.0-0.5); HEMATOCRIT 43.8 % (36.0-47.0); HEMOGLOBIN 14.5 g/dl (12.0-15.5); LYMPH # 1.6 10^3/uL (1.5-5.0); LYMPH % 15.5 % (24.0-44.0); MEAN CORPUSCULAR HEMOGLOBIN 31.2 pg (27.0-33.0); MEAN CORPUSCULAR HGB CONC 33.1 g/dl (32.0-36.5); MEAN CORPUSCULAR VOLUME 94.2 fl (80.0-96.0); MONO # 0.4 10^3/uL (0.0-0.8); MONO % 4.2 % (2.0-8.0); NEUTROPHILS % 77.1 % (36.0-66.0); PLATELET COUNT, AUTOMATED 692 10^3/uL (150-450); RED BLOOD COUNT 4.65 10^6/uL (4.00-5.40); WHITE BLOOD COUNT 10.4 10^3/uL (4.0-10.0)
[2021-09-24] MEDS ORDERED: LABETALOL 100MG/20ML VIAL IV STA ×2 (08:45→09:29)
[2021-09-24] MEDS ORDERED: MORPHINE 4 MG/ML 1ML VIAL/SYRINGE (J2270) IV ONE (08:50)
[2021-09-24] MEDS ORDERED: ONDANSETRON 4MG/2ML VIAL IV ONE (08:50)
[2021-09-24] MEDS ORDERED: ISOVUE-370 76% 100ML VIAL As Ordered ONE (08:56)
[2021-09-24 08:58] LABS: AMPHETAMINES LEVEL URINE NEGATIVE (NEGATIVE); BARBITURATES URINE NEGATIVE (NEGATIVE); BENZODIAZEPINES URINE NEGATIVE (NEGATIVE); CANNABINOIDS URINE NEGATIVE (NEGATIVE); COCAINE METABOLITE URINE NEGATIVE (NEGATIVE); METHADONE URINE NEGATIVE (NEGATIVE); OPIATES URINE NEGATIVE (NEGATIVE); PHENCYCLIDINE URINE NEGATIVE (NEGATIVE)
[2021-09-24] MEDS ORDERED: atenoloL 50 MG TAB PO SCH (09:00)
[2021-09-24] MEDS ORDERED: ENOXAPARIN 40MG/0.4ML SYRINGE (J1650 PER 10MG) SC SCH (09:00)
[2021-09-24] MEDS ORDERED: ASPIRIN 81MG ENTERIC TABLET PO SCH (09:00)
[2021-09-24 09:10] LABS: RSV AMPLIFICATION NEGATIVE (NEGATIVE)
[2021-09-24 09:12] LABS: ACETAMINOPHEN LEVEL < 2.0 UG/ML (10.0-30.0); ALBUMIN 3.3 GM/DL (3.2-5.2); ALT/SGPT 24 U/L (12-78); BILIRUBIN,DIRECT 0.2 MG/DL (0.0-0.2); BILIRUBIN,TOTAL 0.6 MG/DL (0.2-1.0); BLOOD UREA NITROGEN 11 MG/DL (7-18); CALCIUM LEVEL 9.3 MG/DL (8.8-10.2); CARBON DIOXIDE LEVEL 29 MEQ/L (21-32); CHLORIDE LEVEL 103 MEQ/L (98-107); CREATININE FOR GFR 0.72 MG/DL (0.55-1.30); ETHYL ALCOHOL (ETHANOL) < 0.003 % (0.000-0.010); GLOMERULAR FILTRATION RATE > 60.0 (>32); GLUCOSE, FASTING 140 MG/DL (70-100); POTASSIUM SERUM 4.3 MEQ/L (3.5-5.1); SALICYLATE LEVEL < 1.7 MG/DL (5.0-30.0); SODIUM LEVEL 139 MEQ/L (136-145); TOTAL PROTEIN 7.3 GM/DL (6.4-8.2)
[2021-09-24 09:37] LABS: PROTHROMBIN TIME 13.6 SECONDS (12.7-14.5)
[2021-09-24 09:38] LABS: PARTIAL THROMBOPLASTIN TIME 27.5 SECONDS (25.9-37.0)
[2021-09-24] MEDS ORDERED: ASPI-161 PO (10:38)
[2021-09-24] MEDS ORDERED: hydrALAZINE 20MG/ML 1ML VIAL (J0360 PER 20MG) IV PRN (10:40)
[2021-09-24] MEDS ORDERED: HOME MED LIST COMPLETE! XX SCH (10:40)
[2021-09-24] MEDS ORDERED: LOSARTAN 50MG TABLET PO ONE (10:45)
[2021-09-24] MEDS ORDERED: GLUCOSE 4GM CHEW TABLET PO PRN (12:00)
[2021-09-24] MEDS ORDERED: GLUCAGON INJ 1MG VIAL SC PRN (12:00)
[2021-09-24] MEDS ORDERED: DEXTROSE 50% 50 ML SYRINGE IV PRN (12:00)
[2021-09-24 13:35] VITALS: BP 159/76
[2021-09-24] MEDS: HumaLOG INSULIN (NovoLOG) PER UNIT SC SCH ×3 (14:29→20:12)
[2021-09-24 15:27] VITALS: BP 125/80
[2021-09-24 16:18] VITALS: BP 134/61
[2021-09-24] MEDS ORDERED: cefTRIAXone SOD 1 GM in D5W MINI-BAG PLUS 50 ML IV SCH (18:00)
[2021-09-24 20:00] VITALS: BP 134/62
[2021-09-24] MEDS ORDERED: CLOPIDOGREL 75 MG TAB PO ONE (20:00)
[2021-09-24] MEDS: ATORVASTATIN 20 MG TAB PO SCH (20:11)
[2021-09-24] MEDS: NS 1,000 ML IV SCH (20:12)
[2021-09-24] MEDS ORDERED: SIMVASTATIN 40 MG TAB PO SCH (21:00)
[2021-09-25 03:58] VITALS: BP 192/82
[2021-09-25] MEDS ORDERED: **hydrALAZINE HCL** 25 MG TAB PO ONE (04:10)
[2021-09-25 05:42] VITALS: BP 170/78
[2021-09-25] MEDS: NS 1,000 ML IV SCH (06:15)
[2021-09-25 06:16] LABS: HEMATOCRIT 37.1 % (36.0-47.0); MEAN CORPUSCULAR HEMOGLOBIN 31.2 pg (27.0-33.0); MEAN CORPUSCULAR HGB CONC 33.2 g/dl (32.0-36.5); MEAN CORPUSCULAR VOLUME 94.2 fl (80.0-96.0); RED BLOOD COUNT 3.94 10^6/uL (4.00-5.40); WHITE BLOOD COUNT 8.6 10^3/uL (4.0-10.0)
[2021-09-25 06:21] LABS: HEMOGLOBIN 12.3 g/dl (12.0-15.5)
[2021-09-25 06:22] LABS: PLATELET COUNT, AUTOMATED 544 10^3/uL (150-450)
[2021-09-25 06:32] LABS: BLOOD UREA NITROGEN 11 MG/DL (7-18); CALCIUM LEVEL 8.4 MG/DL (8.8-10.2); CARBON DIOXIDE LEVEL 27 MEQ/L (21-32); CHLORIDE LEVEL 105 MEQ/L (98-107); CREATININE FOR GFR 0.59 MG/DL (0.55-1.30); GLOMERULAR FILTRATION RATE > 60.0 (>32); GLUCOSE, FASTING 136 MG/DL (70-100); MAGNESIUM LEVEL 1.7 MG/DL (1.8-2.4); PHOSPHORUS LEVEL 2.8 MG/DL (2.5-4.9); POTASSIUM SERUM 4.2 MEQ/L (3.5-5.1); SODIUM LEVEL 138 MEQ/L (136-145)
[2021-09-25 08:00] VITALS: BP 133/63
[2021-09-25] MEDS: HumaLOG INSULIN (NovoLOG) PER UNIT SC SCH ×4 (08:24→20:07)
[2021-09-25] MEDS: ASPIRIN ENTERIC 325 MG TAB PO SCH (08:24)
[2021-09-25] MEDS ORDERED: LOSARTAN 50MG TABLET PO SCH ×2 (09:00→18:00)
[2021-09-25] MEDS ORDERED: MAGNESIUM OXIDE 400MG TAB (MAG-OX) PO ONE (10:00)
[2021-09-25 12:00] VITALS: BP 178/74
[2021-09-25] MEDS: HEPARIN SOD (PORCINE) 5000UNITS/ML 1ML VIAL/SYRINGE SQ SCH ×2 (14:52→22:30)
[2021-09-25 16:00] VITALS: BP 133/66
[2021-09-25] MEDS ORDERED: LOSARTAN 50MG TABLET PO PRN (18:00)
[2021-09-25 20:15] VITALS: BP 157/79
[2021-09-25] MEDS: ATORVASTATIN 20 MG TAB PO SCH (20:28)
[2021-09-26] VITALS (7 sets, daily range): BP systolic 129–182; BP diastolic 65–92
[2021-09-26] MEDS: HEPARIN SOD (PORCINE) 5000UNITS/ML 1ML VIAL/SYRINGE SQ SCH ×3 (05:43→21:18)
[2021-09-26 07:22] LABS: HEMATOCRIT 38.4 % (36.0-47.0); HEMOGLOBIN 12.6 g/dl (12.0-15.5); MEAN CORPUSCULAR HEMOGLOBIN 30.9 pg (27.0-33.0); MEAN CORPUSCULAR HGB CONC 32.8 g/dl (32.0-36.5); MEAN CORPUSCULAR VOLUME 94.1 fl (80.0-96.0); PLATELET COUNT, AUTOMATED 542 10^3/uL (150-450); RED BLOOD COUNT 4.08 10^6/uL (4.00-5.40); WHITE BLOOD COUNT 8.2 10^3/uL (4.0-10.0)
[2021-09-26 07:46] LABS: BLOOD UREA NITROGEN 11 MG/DL (7-18); CALCIUM LEVEL 8.6 MG/DL (8.8-10.2); CARBON DIOXIDE LEVEL 25 MEQ/L (21-32); CHLORIDE LEVEL 108 MEQ/L (98-107); CREATININE FOR GFR 0.58 MG/DL (0.55-1.30); GLOMERULAR FILTRATION RATE > 60.0 (>32); GLUCOSE, FASTING 133 MG/DL (70-100); MAGNESIUM LEVEL 1.9 MG/DL (1.8-2.4); PHOSPHORUS LEVEL 2.9 MG/DL (2.5-4.9); POTASSIUM SERUM 3.9 MEQ/L (3.5-5.1); SODIUM LEVEL 141 MEQ/L (136-145)
[2021-09-26] MEDS: HumaLOG INSULIN (NovoLOG) PER UNIT SC SCH ×4 (08:38→19:55)
[2021-09-26] MEDS: ASPIRIN ENTERIC 325 MG TAB PO SCH (08:38)
[2021-09-26] MEDS ORDERED: atenoloL 50 MG TAB PO SCH (09:00)
[2021-09-26] MEDS ORDERED: LOSARTAN 50MG TABLET PO SCH (09:00)
[2021-09-26] MEDS: ATORVASTATIN 20 MG TAB PO SCH (20:13)
[2021-09-27] VITALS (7 sets, daily range): BP systolic 104–184; BP diastolic 58–88
[2021-09-27] MEDS: HEPARIN SOD (PORCINE) 5000UNITS/ML 1ML VIAL/SYRINGE SQ SCH ×3 (05:21→21:21)
[2021-09-27 08:06] LABS: HEMATOCRIT 39.4 % (36.0-47.0); MEAN CORPUSCULAR HEMOGLOBIN 31.6 pg (27.0-33.0); MEAN CORPUSCULAR VOLUME 95.9 fl (80.0-96.0); PLATELET COUNT, AUTOMATED 565 10^3/uL (150-450); RED BLOOD COUNT 4.11 10^6/uL (4.00-5.40); WHITE BLOOD COUNT 8.1 10^3/uL (4.0-10.0)
[2021-09-27] MEDS: LOSARTAN 50MG TABLET PO SCH ×2 (09:00→21:19)
[2021-09-27] MEDS: amLODIPine 5 MG TAB PO SCH ×2 (09:00→09:21)
[2021-09-27] MEDS: HumaLOG INSULIN (NovoLOG) PER UNIT SC SCH ×4 (09:18→21:00)
[2021-09-27] MEDS: ASPIRIN ENTERIC 325 MG TAB PO SCH (09:20)
[2021-09-27 09:54] LABS: BLOOD UREA NITROGEN 16 MG/DL (7-18); CALCIUM LEVEL 8.9 MG/DL (8.8-10.2); CARBON DIOXIDE LEVEL 28 MEQ/L (21-32); CHLORIDE LEVEL 107 MEQ/L (98-107); CREATININE FOR GFR 0.72 MG/DL (0.55-1.30); GLOMERULAR FILTRATION RATE > 60.0 (>32); GLUCOSE, FASTING 128 MG/DL (70-100); MAGNESIUM LEVEL 1.9 MG/DL (1.8-2.4); PHOSPHORUS LEVEL 2.9 MG/DL (2.5-4.9); POTASSIUM SERUM 3.7 MEQ/L (3.5-5.1); SODIUM LEVEL 141 MEQ/L (136-145)
[2021-09-27] MEDS ORDERED: amLODIPine 5 MG TAB PO SCH ×2 (16:00→18:00)
[2021-09-27] MEDS: ATORVASTATIN 20 MG TAB PO SCH (21:19)
[2021-09-28] VITALS: BP 138/72
[2021-09-28 04:00] VITALS: BP 160/70
[2021-09-28] MEDS: HEPARIN SOD (PORCINE) 5000UNITS/ML 1ML VIAL/SYRINGE SQ SCH ×2 (05:54→14:27)
[2021-09-28 06:41] LABS: HEMATOCRIT 40.4 % (36.0-47.0); HEMOGLOBIN 13.2 g/dl (12.0-15.5); MEAN CORPUSCULAR HGB CONC 32.7 g/dl (32.0-36.5); MEAN CORPUSCULAR VOLUME 94.8 fl (80.0-96.0); PLATELET COUNT, AUTOMATED 549 10^3/uL (150-450); RED BLOOD COUNT 4.26 10^6/uL (4.00-5.40); WHITE BLOOD COUNT 8.1 10^3/uL (4.0-10.0)
[2021-09-28 07:20] LABS: BLOOD UREA NITROGEN 13 MG/DL (7-18); CALCIUM LEVEL 8.7 MG/DL (8.8-10.2); CARBON DIOXIDE LEVEL 27 MEQ/L (21-32); CHLORIDE LEVEL 106 MEQ/L (98-107); CREATININE FOR GFR 0.59 MG/DL (0.55-1.30); GLOMERULAR FILTRATION RATE > 60.0 (>32); GLUCOSE, FASTING 123 MG/DL (70-100); MAGNESIUM LEVEL 1.9 MG/DL (1.8-2.4); PHOSPHORUS LEVEL 3.3 MG/DL (2.5-4.9); POTASSIUM SERUM 4.3 MEQ/L (3.5-5.1); SODIUM LEVEL 140 MEQ/L (136-145)
[2021-09-28 08:00] VITALS: BP 124/64
[2021-09-28] MEDS: ASPIRIN ENTERIC 325 MG TAB PO SCH (08:11)
[2021-09-28 08:12] VITALS: BP 124/64
[2021-09-28] MEDS: HumaLOG INSULIN (NovoLOG) PER UNIT SC SCH ×2 (08:12→12:00)
[2021-09-28] MEDS: LOSARTAN 50MG TABLET PO SCH (08:12)
[2021-09-28] MEDS ORDERED: atenoloL 25 MG TAB PO SCH (09:00)
[2021-09-28] MEDS ORDERED: AMLO1TAB24 PO (09:42)
[2021-09-28] MEDS ORDERED: ATOR1TAB21 PO (09:42)
[2021-09-28] MEDS ORDERED: ASPI32ECTA PO (09:42)
[2021-09-28] MEDS ORDERED: COZA50TA PO (09:42)
== END 2021-09-28 14:43 | disposition home health service (06) | DRG 64 ==
LOC: EDBD 07:42 → M ED 07:42 → M ED INP 10:32 → ENRESERV 12:31 → M PCU 13:25
PROVIDERS: ADMIT Internal Medicine; ATTEND Internal Medicine
DX: I63.59 Cerebral infarction due to unspecified occlusion or stenosis of other cerebral artery (principal); G93.41 Metabolic encephalopathy; I16.1 Hypertensive emergency; E87.2 Acidosis; E11.9 Type 2 diabetes mellitus without complications; I10 Essential (primary) hypertension; E03.9 Hypothyroidism, unspecified; K44.9 Diaphragmatic hernia without obstruction or gangrene; E78.5 Hyperlipidemia, unspecified; M19.90 Unspecified osteoarthritis, unspecified site; D75.839 Thrombocytosis, unspecified; Z85.3 Personal history of malignant neoplasm of breast; Z90.11 Acquired absence of right breast and nipple; Z90.49 Acquired absence of other specified parts of digestive tract; Z86.010 Personal history of colon polyps; Z20.822 Contact with and (suspected) exposure to COVID-19; Z79.82 Long term (current) use of aspirin; Z79.84 Long term (current) use of oral hypoglycemic drugs; Z79.899 Other long term (current) drug therapy; Z96.0 Presence of urogenital implants

== ENCOUNTER → 2021-10-06 | Outpatient (REF) | payer MEDICARE ==
[~2021-10-06] MED LIST changes: +AMLO1TAB24 PO; +ASPI-161 PO; +ASPI32ECTA PO; +ATOR1TAB21 PO; +COZA50TA PO
[2021-10-06 12:35] LABS: HEMOGLOBIN 13.8 g/dl (12.0-15.5); MEAN CORPUSCULAR HEMOGLOBIN 31.7 pg (27.0-33.0); MEAN CORPUSCULAR HGB CONC 32.9 g/dl (32.0-36.5); MEAN CORPUSCULAR VOLUME 96.3 fl (80.0-96.0); PLATELET COUNT, AUTOMATED 390 10^3/uL (150-450); RED BLOOD COUNT 4.36 10^6/uL (4.00-5.40); WHITE BLOOD COUNT 7.7 10^3/uL (4.0-10.0)
[2021-10-06 12:45] LABS: INR 1.07; PROTHROMBIN TIME 14.3 SECONDS (12.7-14.5)
[2021-10-06 12:46] LABS: PARTIAL THROMBOPLASTIN TIME 26.6 SECONDS (25.9-37.0)
[2021-10-06 13:00] LABS: ALBUMIN 3.4 GM/DL (3.2-5.2); ALT/SGPT 23 U/L (12-78); BILIRUBIN,TOTAL 0.6 MG/DL (0.2-1.0); BLOOD UREA NITROGEN 19 MG/DL (7-18); CARBON DIOXIDE LEVEL 26 MEQ/L (21-32); CHLORIDE LEVEL 106 MEQ/L (98-107); CHOLESTEROL LEVEL 135 MG/DL (<200); CHOLESTEROL RISK RATIO 2.596 (<5); CREATININE FOR GFR 0.81 MG/DL (0.55-1.30); GLOMERULAR FILTRATION RATE > 60.0 (>32); GLUCOSE, FASTING 197 MG/DL (70-100); HDL CHOLESTEROL 52 MG/DL (>40); LDL CHOLESTEROL 56 MG/DL (<100); NON-HDL-C 83 MG/DL; SODIUM LEVEL 139 MEQ/L (136-145); TOTAL PROTEIN 7.4 GM/DL (6.4-8.2); TRIGLYCERIDES LEVEL 137 MG/DL (<150)
[2021-10-06 13:08] LABS: FOLATE 16.8 NG/ML (>5.4); VITAMIN B12 LEVEL 241 PG/ML (247-911)
== END ==
LOC: M SFHCADAM 09:57
PROVIDERS: ATTEND Family Medicine
DX: Z01.818 Encounter for other preprocedural examination (principal); E11.9 Type 2 diabetes mellitus without complications; E78.5 Hyperlipidemia, unspecified; N20.0 Calculus of kidney; D75.839 Thrombocytosis, unspecified; E53.8 Deficiency of other specified B group vitamins

== ENCOUNTER → 2021-10-21 | Outpatient (REF) | payer MEDICARE ==
[~2021-10-21] MED LIST changes: +FLOM0.4C39 PO; +OXYC1TAB23 PO
[2021-10-21 13:32] LABS: APPEARANCE, URINE MANUAL CLOUDY (CLEAR); BILIRUBIN, URINE MANUAL NEGATIVE (NEGATIVE); COLOR, URINE MANUAL RED (YELLOW); GLUCOSE, URINE (UA) MANUAL NEGATIVE (NEGATIVE); KETONE, URINE MANUAL NEGATIVE (NEGATIVE); PROTEIN, URINE MANUAL 3+ mg/dL (NEGATIVE); SPECIFIC GRAVITY,URINE MANUAL 1.015 (1.002-1.035); UROBILINOGEN, URINE MANUAL NORMAL (NORMAL)
[2021-10-21 13:33] LABS: BLOOD URINE MANUAL POSITIVE (NEGATIVE); LEUKOCYTE ESTERASE, URINE MAN POSITIVE (NEGATIVE)
[2021-10-21 13:34] LABS: NITRITE, URINE MANUAL NEGATIVE (NEGATIVE)
[2021-10-21 13:44] LABS: RBC, URINE TNTC /hpf (0-3); SQUAMOUS EPITHELIAL CELL URINE SMALL AMOUNT /hpf (SMALL AMT)
[2021-10-21 13:45] LABS: BACTERIA, URINE MOD AMOUNT; WBC, URINE 30-40 /hpf (0-3)
[2021-10-21 13:46] LABS: HYALINE CAST, URINE NONE SEEN /lpf (0-1); RENAL EPITHELIAL CELLS, URINE SMALL AMOUNT /hpf; TRANSITIONAL EPI CELLS, URINE SMALL AMOUNT /hpf
[2021-10-21 13:49] LABS: BLOOD UREA NITROGEN 11 MG/DL (7-18); CALCIUM LEVEL 10.4 MG/DL (8.8-10.2); CARBON DIOXIDE LEVEL 27 MEQ/L (21-32); CHLORIDE LEVEL 104 MEQ/L (98-107); GLOMERULAR FILTRATION RATE > 60.0 (>32); GLUCOSE, FASTING 88 MG/DL (70-100); POTASSIUM SERUM 4.2 MEQ/L (3.5-5.1); SODIUM LEVEL 139 MEQ/L (136-145)
[2021-10-21 15:16] LABS: HEMOGLOBIN A1c 6.7 %
== END ==
LOC: M SFHCADAM 10:56
PROVIDERS: ATTEND Physician Assistant
DX: Z01.818 Encounter for other preprocedural examination (principal); E11.9 Type 2 diabetes mellitus without complications; N20.0 Calculus of kidney

== ENCOUNTER → 2021-10-22 | Outpatient (REF) | payer MEDICARE ==
[2021-10-22 17:40] LABS: APPEARANCE, URINE CLOUDY (CLEAR); BACTERIA, URINE AUTO NEGATIVE (NEGATIVE); BILIRUBIN, URINE AUTO NEGATIVE (NEGATIVE); BLOOD, URINE BLOOD 3+ (NEGATIVE); COLOR, URINE RED (YELLOW); GLUCOSE, URINE (UA) AUTO 1+ mg/dL (NEGATIVE); KETONE, URINE AUTO NEGATIVE (NEGATIVE); LEUKOCYTE ESTERASE, URINE AUTO 2+ (NEGATIVE); MUCUS, URINE MODERATE (NEGATIVE); NITRITE, URINE AUTO NEGATIVE (NEGATIVE); PROTEIN, URINE AUTO 3+ mg/dL (NEGATIVE); RBC, URINE AUTO TNTC /HPF (0-3); SPECIFIC GRAVITY URINE AUTO 1.017 (1.002-1.035); SQUAMOUS EPITHELIAL CELL UR AU 0 /HPF (0-6); UROBILINOGEN, URINE AUTO 0.2 mg/dL (0.0-2.0); WBC, URINE AUTO TNTC /HPF (0-3)
== END ==
LOC: M SMT 16:36
PROVIDERS: ATTEND Nurse Practitioner Women's Health
DX: N20.0 Calculus of kidney (principal)

== ENCOUNTER → 2021-11-19 | Outpatient (CLI) | payer MEDICARE | LOC: M ADAMS 09:36 | PROVIDERS: ATTEND Nurse Practitioner Women's Health | DX: N20.0 Calculus of kidney (principal); Z96.0 Presence of urogenital implants ==

== ENCOUNTER → 2022-02-17 | Outpatient (REF) | payer MEDICARE ==
[2022-02-17 12:49] LABS: HEMOGLOBIN 13.5 g/dl (12.0-15.5); MEAN CORPUSCULAR HEMOGLOBIN 31.4 pg (27.0-33.0); MEAN CORPUSCULAR HGB CONC 32.9 g/dl (32.0-36.5); MEAN CORPUSCULAR VOLUME 95.3 fl (80.0-96.0); PLATELET COUNT, AUTOMATED 366 10^3/uL (150-450); WHITE BLOOD COUNT 7.9 10^3/uL (4.0-10.0)
[2022-02-17 13:22] LABS: ALBUMIN 3.5 GM/DL (3.2-5.2); ALT/SGPT 22 U/L (12-78); BILIRUBIN,TOTAL 0.7 MG/DL (0.2-1.0); BLOOD UREA NITROGEN 13 MG/DL (7-18); CALCIUM LEVEL 9.3 MG/DL (8.8-10.2); CARBON DIOXIDE LEVEL 29 MEQ/L (21-32); CHLORIDE LEVEL 105 MEQ/L (98-107); CHOLESTEROL LEVEL 134 MG/DL (<200); CHOLESTEROL RISK RATIO 2.481 (<5); CREATININE FOR GFR 0.54 MG/DL (0.55-1.30); GLOMERULAR FILTRATION RATE > 60.0 (>32); GLUCOSE, FASTING 112 MG/DL (70-100); HDL CHOLESTEROL 54 MG/DL (>40); LDL CHOLESTEROL 56 MG/DL (<100); NON-HDL-C 80 MG/DL; SODIUM LEVEL 140 MEQ/L (136-145); TOTAL PROTEIN 7.4 GM/DL (6.4-8.2); TRIGLYCERIDES LEVEL 122 MG/DL (<150)
[2022-02-17 13:57] LABS: VITAMIN B12 LEVEL 402 PG/ML (247-911)
[2022-02-17 17:01] LABS: HEMOGLOBIN A1c 6.8 %
== END ==
LOC: M SFHCADAM 08:08
PROVIDERS: ATTEND Family Medicine
DX: D75.839 Thrombocytosis, unspecified (principal); E53.8 Deficiency of other specified B group vitamins; E11.9 Type 2 diabetes mellitus without complications; E78.5 Hyperlipidemia, unspecified

== ENCOUNTER → 2022-02-25 | Outpatient (CLI) | payer MEDICARE | LOC: M ADAMS 09:23 | PROVIDERS: ATTEND Family Medicine | DX: M25.552 Pain in left hip (principal) ==

== ENCOUNTER 2022-03-20 15:19 | Emergency (ER) | payer MEDICARE ==
[~2022-03-20] VITALS: Ht 139.7 cm; Wt 94.2 kg
[~2022-03-20 15:19] MED LIST changes: -BENI1TAB3 PO; +OLME20TA55 PO
[2022-03-20] MEDS ORDERED: LOSA50TA28 PO (15:41)
[2022-03-20] MEDS ORDERED: ATOR40TA75 PO (15:41)
[2022-03-20] MEDS ORDERED: CEPHALEXIN 500 MG CAP PO ONE (17:35)
[2022-03-20] MEDS ORDERED: LOSARTAN 50MG TABLET PO ONE (17:35)
[2022-03-20 17:50] VITALS: BP 181/115
[2022-03-20 17:57] LABS: BASO % 0.5 % (0.0-1.0); EOS # 0.2 10^3/uL (0.0-0.5); EOS % 2.2 % (0.0-3.0); HEMATOCRIT 40.9 % (36.0-47.0); HEMOGLOBIN 13.4 g/dl (12.0-15.5); LYMPH # 1.5 10^3/uL (1.5-5.0); LYMPH % 19.5 % (24.0-44.0); MEAN CORPUSCULAR HEMOGLOBIN 30.7 pg (27.0-33.0); MEAN CORPUSCULAR HGB CONC 32.8 g/dl (32.0-36.5); MEAN CORPUSCULAR VOLUME 93.8 fl (80.0-96.0); MONO # 0.8 10^3/uL (0.0-0.8); MONO % 10.1 % (2.0-8.0); NEUTROPHILS # 5.3 10^3/uL (1.5-8.5); NEUTROPHILS % 67.4 % (36.0-66.0); PLATELET COUNT, AUTOMATED 338 10^3/uL (150-450); RED BLOOD COUNT 4.36 10^6/uL (4.00-5.40); WHITE BLOOD COUNT 7.9 10^3/uL (4.0-10.0)
[2022-03-20 18:34] LABS: ERYTHROCYTE SEDIMENTATION RATE 37 mm/hr (0-30)
[2022-03-20 18:37] LABS: BLOOD UREA NITROGEN 9 MG/DL (7-18); C REACTIVE PROTEIN QUANTITATIV 1.24 MG/DL (0.00-0.30); CARBON DIOXIDE LEVEL 27 MEQ/L (21-32); CHLORIDE LEVEL 105 MEQ/L (98-107); CREATININE FOR GFR 0.57 MG/DL (0.55-1.30); GLOMERULAR FILTRATION RATE > 60.0 (>32); GLUCOSE, FASTING 131 MG/DL (70-100); POTASSIUM SERUM 3.8 MEQ/L (3.5-5.1); SODIUM LEVEL 138 MEQ/L (136-145)
[2022-03-20 19:11] VITALS: BP 140/80
[2022-03-20] MEDS ORDERED: CEPH500C PO (19:13)
[2022-03-20] MEDS ORDERED: LOTR1CRE12 TOP (19:13)
== END 2022-03-20 19:29 | disposition home or self-care (01) ==
LOC: M ED 15:19
DX: L03.116 Cellulitis of left lower limb (principal)

== ENCOUNTER 2022-04-27 08:28 | Inpatient (IN) | payer MEDICARE ==
[~2022-04-27] VITALS: Ht 162.6 cm; Wt 93.0 kg
[~2022-04-27 08:28] MED LIST changes: +ATOR40TA75 PO; +CEPH500C PO; +LOSA50TA28 PO; +LOTR1CRE12 TOP
[2022-04-27] MEDS: MORPHINE 2 MG/ML 1ML VIAL IV PRN ×2 (09:37→10:13)
[2022-04-27 09:40] LABS: BASO # 0.1 10^3/uL (0.0-0.2); BASO % 0.5 % (0.0-1.0); EOS # 0.1 10^3/uL (0.0-0.5); HEMATOCRIT 44.5 % (36.0-47.0); HEMOGLOBIN 14.2 g/dl (12.0-15.5); LYMPH # 1.5 10^3/uL (1.5-5.0); LYMPH % 11.9 % (24.0-44.0); MEAN CORPUSCULAR HEMOGLOBIN 30.3 pg (27.0-33.0); MEAN CORPUSCULAR HGB CONC 31.9 g/dl (32.0-36.5); MEAN CORPUSCULAR VOLUME 95.1 fl (80.0-96.0); MONO # 0.7 10^3/uL (0.0-0.8); MONO % 5.2 % (2.0-8.0); NEUTROPHILS # 10.5 10^3/uL (1.5-8.5); PLATELET COUNT, AUTOMATED 430 10^3/uL (150-450); RED BLOOD COUNT 4.68 10^6/uL (4.00-5.40); WHITE BLOOD COUNT 12.9 10^3/uL (4.0-10.0)
[2022-04-27 10:06] LABS: BLOOD UREA NITROGEN 11 MG/DL (7-18); CALCIUM LEVEL 10.1 MG/DL (8.8-10.2); CARBON DIOXIDE LEVEL 24 MEQ/L (21-32); CHLORIDE LEVEL 102 MEQ/L (98-107); CREATININE FOR GFR 0.64 MG/DL (0.55-1.30); GLOMERULAR FILTRATION RATE > 60.0 (>32); GLUCOSE, FASTING 163 MG/DL (70-100); POTASSIUM SERUM 3.9 MEQ/L (3.5-5.1); SODIUM LEVEL 138 MEQ/L (136-145)
[2022-04-27] MEDS ORDERED: PERCOCET 5MG/325MG TAB PO PRN (11:10)
[2022-04-27] MEDS: PERCOCET 5MG/325MG TAB PO PRN ×2 (11:33→17:56)
[2022-04-27] MEDS ORDERED: KETOROLAC 30 MG/ML 1ML VIAL IV ONE (11:55)
[2022-04-27] MEDS ORDERED: AMLO1TAB24 PO (12:07)
[2022-04-27] MEDS ORDERED: VITA100018 PO (12:07)
[2022-04-27] MEDS ORDERED: VITA-168 PO (12:07)
[2022-04-27] MEDS ORDERED: OYST1TAB PO (12:07)
[2022-04-27] MEDS ORDERED: BAYE325T16 PO (12:07)
[2022-04-27] MEDS ORDERED: HOME MED LIST COMPLETE! XX SCH (12:10)
[2022-04-27 12:29] LABS: RSV AMPLIFICATION NEGATIVE (NEGATIVE)
[2022-04-27] MEDS ORDERED: GLUCOSE 4GM CHEW TABLET PO PRN (13:20)
[2022-04-27] MEDS ORDERED: DEXTROSE 50% 50 ML SYRINGE IV PRN (13:20)
[2022-04-27] MEDS ORDERED: GLUCAGON INJ 1MG VIAL SC PRN (13:20)
[2022-04-27 13:44] LABS: INR 1.03; PROTHROMBIN TIME 13.7 SECONDS (12.5-14.5)
[2022-04-27 13:45] LABS: PARTIAL THROMBOPLASTIN TIME 25.3 SECONDS (24.8-34.2)
[2022-04-27] MEDS: LOSARTAN 50MG TABLET PO SCH ×2 (15:25→21:06)
[2022-04-27] MEDS: INSULIN LISPRO (NovoLOG) PER UNIT SC SCH ×2 (18:01→21:07)
[2022-04-27] MEDS: ATORVASTATIN 20 MG TAB PO SCH (21:05)
[2022-04-27] MEDS: DOCUSATE SODIUM 100MG CAPSULE PO SCH (21:05)
[2022-04-27] MEDS: SENNA 8.6 MG TAB (SENOKOT) PO SCH (21:06)
[2022-04-27 21:45] VITALS: BP 190/87
[2022-04-27] MEDS: ACETAMINOPHEN TAB 650MG DOSE (2X325MG) PO PRN (22:13)
[2022-04-27] MEDS ORDERED: MORPHINE 2 MG/ML 1ML VIAL IV ONE (22:35)
[2022-04-28] MEDS: PERCOCET 5MG/325MG TAB PO PRN ×3 (02:45→15:14)
[2022-04-28 06:00] VITALS: BP 148/89
[2022-04-28 07:32] LABS: HEMATOCRIT 40.7 % (36.0-47.0); HEMOGLOBIN 13.5 g/dl (12.0-15.5); MEAN CORPUSCULAR HEMOGLOBIN 31.2 pg (27.0-33.0); MEAN CORPUSCULAR HGB CONC 33.2 g/dl (32.0-36.5); PLATELET COUNT, AUTOMATED 380 10^3/uL (150-450); RED BLOOD COUNT 4.33 10^6/uL (4.00-5.40); WHITE BLOOD COUNT 14.8 10^3/uL (4.0-10.0)
[2022-04-28 08:54] LABS: ALBUMIN 3.2 GM/DL (3.2-5.2); ALT/SGPT 19 U/L (12-78); BILIRUBIN,TOTAL 0.9 MG/DL (0.2-1.0); BLOOD UREA NITROGEN 14 MG/DL (7-18); CALCIUM LEVEL 9.1 MG/DL (8.8-10.2); CARBON DIOXIDE LEVEL 25 MEQ/L (21-32); CHLORIDE LEVEL 102 MEQ/L (98-107); CREATININE FOR GFR 0.56 MG/DL (0.55-1.30); GLOMERULAR FILTRATION RATE > 60.0 (>32); GLUCOSE, FASTING 195 MG/DL (70-100); POTASSIUM SERUM 3.9 MEQ/L (3.5-5.1); SODIUM LEVEL 136 MEQ/L (136-145); TOTAL PROTEIN 6.8 GM/DL (6.4-8.2)
[2022-04-28] MEDS: INSULIN LISPRO (NovoLOG) PER UNIT SC SCH ×4 (09:15→21:00)
[2022-04-28] MEDS: LEVEMIR (INSULIN DETEMIR) 1 UNITS/0.01ML SC SCH (09:15)
[2022-04-28] MEDS: OYSTER SHELL CALCIUM 500 MG TAB PO SCH (09:15)
[2022-04-28] MEDS: ASPIRIN 325 MG TAB PO SCH (09:16)
[2022-04-28] MEDS: amLODIPine 5 MG TAB PO SCH (09:16)
[2022-04-28] MEDS: DOCUSATE SODIUM 100MG CAPSULE PO SCH ×2 (09:16→22:26)
[2022-04-28] MEDS: CYANOCOBALAMIN 500 MCG TAB PO SCH (09:16)
[2022-04-28] MEDS: ENOXAPARIN 40MG/0.4ML SYRINGE (J1650 PER 10MG) SC SCH (09:16)
[2022-04-28] MEDS: LOSARTAN 50MG TABLET PO SCH ×2 (09:16→22:27)
[2022-04-28] MEDS ORDERED: FLUBLOK(EGG FREE)(QUAD)INFLUENZA VACC 0.5ML SYRINGE 18YRS & OLDER IM.IMMUN ONE (10:00)
[2022-04-28 14:00] VITALS: BP 135/83
[2022-04-28] MEDS: ANEXSIA, NORCO 7.5MG/325MG TABLET(HYDROCODONE/APAP) PO PRN (20:47)
[2022-04-28 20:53] VITALS: BP 144/83
[2022-04-28] MEDS: carisoprodoL 350 MG TAB PO PRN (22:27)
[2022-04-28] MEDS: ATORVASTATIN 20 MG TAB PO SCH (22:28)
[2022-04-28] MEDS: SENNA 8.6 MG TAB (SENOKOT) PO SCH (22:28)
[2022-04-29] MEDS: ANEXSIA, NORCO 7.5MG/325MG TABLET(HYDROCODONE/APAP) PO PRN ×3 (02:55→22:59)
[2022-04-29 06:36] VITALS: BP 145/87
[2022-04-29 06:58] LABS: HEMATOCRIT 39.6 % (36.0-47.0); MEAN CORPUSCULAR HEMOGLOBIN 30.7 pg (27.0-33.0); MEAN CORPUSCULAR HGB CONC 32.8 g/dl (32.0-36.5); MEAN CORPUSCULAR VOLUME 93.6 fl (80.0-96.0); PLATELET COUNT, AUTOMATED 371 10^3/uL (150-450); RED BLOOD COUNT 4.23 10^6/uL (4.00-5.40); WHITE BLOOD COUNT 13.4 10^3/uL (4.0-10.0)
[2022-04-29 07:44] LABS: ALT/SGPT 16 U/L (12-78); BLOOD UREA NITROGEN 16 MG/DL (7-18); CALCIUM LEVEL 9.3 MG/DL (8.8-10.2); CARBON DIOXIDE LEVEL 25 MEQ/L (21-32); CHLORIDE LEVEL 104 MEQ/L (98-107); CREATININE FOR GFR 0.61 MG/DL (0.55-1.30); GLOMERULAR FILTRATION RATE > 60.0 (>32); GLUCOSE, FASTING 164 MG/DL (70-100); POTASSIUM SERUM 3.8 MEQ/L (3.5-5.1); SODIUM LEVEL 137 MEQ/L (136-145); TOTAL PROTEIN 6.5 GM/DL (6.4-8.2)
[2022-04-29 08:07] VITALS: BP 139/70
[2022-04-29 08:18] VITALS: BP 118/80
[2022-04-29] MEDS: DOCUSATE SODIUM 100MG CAPSULE PO SCH ×2 (08:18→21:03)
[2022-04-29] MEDS: OYSTER SHELL CALCIUM 500 MG TAB PO SCH (08:19)
[2022-04-29] MEDS: LOSARTAN 50MG TABLET PO SCH ×2 (08:19→21:04)
[2022-04-29] MEDS: ASPIRIN 325 MG TAB PO SCH (08:19)
[2022-04-29] MEDS: amLODIPine 5 MG TAB PO SCH (08:19)
[2022-04-29] MEDS: ENOXAPARIN 40MG/0.4ML SYRINGE (J1650 PER 10MG) SC SCH (08:20)
[2022-04-29] MEDS: CYANOCOBALAMIN 500 MCG TAB PO SCH (08:20)
[2022-04-29] MEDS: INSULIN LISPRO (NovoLOG) PER UNIT SC SCH ×4 (08:22→20:53)
[2022-04-29] MEDS: LEVEMIR (INSULIN DETEMIR) 1 UNITS/0.01ML SC SCH (09:58)
[2022-04-29 14:23] VITALS: BP 138/72
[2022-04-29 20:35] VITALS: BP 127/80
[2022-04-29] MEDS: ATORVASTATIN 20 MG TAB PO SCH (21:03)
[2022-04-29] MEDS: SENNA 8.6 MG TAB (SENOKOT) PO SCH (21:04)
[2022-04-30] MEDS: ANEXSIA, NORCO 7.5MG/325MG TABLET(HYDROCODONE/APAP) PO PRN ×2 (05:21→18:29)
[2022-04-30] MEDS: NYSTATIN 100,000 UNITS/GM TOPICAL PWD 15 GM TOP SCH ×2 (06:20→20:38)
[2022-04-30 06:24] VITALS: BP 117/79
[2022-04-30] MEDS: INSULIN LISPRO (NovoLOG) PER UNIT SC SCH ×4 (07:30→20:37)
[2022-04-30] MEDS ORDERED: cefTRIAXone SOD 1 GM in D5W MINI-BAG PLUS 50 ML IV ONE (08:00)
[2022-04-30 08:08] LABS: HEMATOCRIT 38.6 % (36.0-47.0); HEMOGLOBIN 12.6 g/dl (12.0-15.5); MEAN CORPUSCULAR HEMOGLOBIN 30.7 pg (27.0-33.0); MEAN CORPUSCULAR HGB CONC 32.6 g/dl (32.0-36.5); MEAN CORPUSCULAR VOLUME 93.9 fl (80.0-96.0); PLATELET COUNT, AUTOMATED 365 10^3/uL (150-450); RED BLOOD COUNT 4.11 10^6/uL (4.00-5.40); WHITE BLOOD COUNT 12.8 10^3/uL (4.0-10.0)
[2022-04-30 08:45] LABS: ALBUMIN 2.7 GM/DL (3.2-5.2); ALT/SGPT 15 U/L (12-78); BILIRUBIN,TOTAL 0.7 MG/DL (0.2-1.0); BLOOD UREA NITROGEN 21 MG/DL (7-18); CALCIUM LEVEL 9.1 MG/DL (8.8-10.2); CARBON DIOXIDE LEVEL 27 MEQ/L (21-32); CHLORIDE LEVEL 103 MEQ/L (98-107); CREATININE FOR GFR 0.63 MG/DL (0.55-1.30); GLOMERULAR FILTRATION RATE > 60.0 (>32); GLUCOSE, FASTING 164 MG/DL (70-100); POTASSIUM SERUM 3.9 MEQ/L (3.5-5.1); SODIUM LEVEL 137 MEQ/L (136-145); TOTAL PROTEIN 6.5 GM/DL (6.4-8.2)
[2022-04-30] MEDS: LEVEMIR (INSULIN DETEMIR) 1 UNITS/0.01ML SC SCH (09:03)
[2022-04-30] MEDS: amLODIPine 5 MG TAB PO SCH (09:04)
[2022-04-30] MEDS: CYANOCOBALAMIN 500 MCG TAB PO SCH (09:04)
[2022-04-30] MEDS: DOCUSATE SODIUM 100MG CAPSULE PO SCH ×2 (09:04→20:37)
[2022-04-30] MEDS: ASPIRIN 325 MG TAB PO SCH (09:04)
[2022-04-30] MEDS: LOSARTAN 50MG TABLET PO SCH ×2 (09:04→20:37)
[2022-04-30] MEDS: ENOXAPARIN 40MG/0.4ML SYRINGE (J1650 PER 10MG) SC SCH (09:04)
[2022-04-30] MEDS: OYSTER SHELL CALCIUM 500 MG TAB PO SCH (09:05)
[2022-04-30] MEDS: SENNA 8.6 MG TAB (SENOKOT) PO SCH (20:37)
[2022-04-30] MEDS: ATORVASTATIN 20 MG TAB PO SCH (20:37)
[2022-04-30] MEDS: BISACODYL 10 MG SUPP PR SCH (20:38)
[2022-04-30] MEDS: MIRALAX *UNIT DOSE* 17GM PACKET PO PRN (20:38)
[2022-04-30] MEDS: ACETAMINOPHEN 650MG ER TAB (TYLENOL ARTHRITIS) PO SCH (22:00)
[2022-04-30] MEDS ORDERED: KETOROLAC 30 MG/ML 1ML VIAL IV PRN (22:10)
[2022-05-01] MEDS: ANEXSIA, NORCO 7.5MG/325MG TABLET(HYDROCODONE/APAP) PO PRN ×2 (04:21→17:05)
[2022-05-01] MEDS: ACETAMINOPHEN 650MG ER TAB (TYLENOL ARTHRITIS) PO SCH ×2 (05:56→14:22)
[2022-05-01 06:18] VITALS: BP 160/82
[2022-05-01 06:57] LABS: HEMATOCRIT 38.8 % (36.0-47.0); HEMOGLOBIN 12.8 g/dl (12.0-15.5); MEAN CORPUSCULAR HEMOGLOBIN 30.9 pg (27.0-33.0); MEAN CORPUSCULAR VOLUME 93.7 fl (80.0-96.0); PLATELET COUNT, AUTOMATED 440 10^3/uL (150-450); RED BLOOD COUNT 4.14 10^6/uL (4.00-5.40)
[2022-05-01 07:24] LABS: ALBUMIN 2.7 GM/DL (3.2-5.2); ALT/SGPT 15 U/L (12-78); BILIRUBIN,TOTAL 0.8 MG/DL (0.2-1.0); BLOOD UREA NITROGEN 24 MG/DL (7-18); CALCIUM LEVEL 9.1 MG/DL (8.8-10.2); CARBON DIOXIDE LEVEL 26 MEQ/L (21-32); CHLORIDE LEVEL 103 MEQ/L (98-107); CREATININE FOR GFR 0.53 MG/DL (0.55-1.30); GLOMERULAR FILTRATION RATE > 60.0 (>32); GLUCOSE, FASTING 173 MG/DL (70-100); POTASSIUM SERUM 3.5 MEQ/L (3.5-5.1); SODIUM LEVEL 136 MEQ/L (136-145); TOTAL PROTEIN 7.3 GM/DL (6.4-8.2)
[2022-05-01] MEDS: INSULIN LISPRO (NovoLOG) PER UNIT SC SCH ×4 (08:32→21:00)
[2022-05-01] MEDS: OYSTER SHELL CALCIUM 500 MG TAB PO SCH (08:32)
[2022-05-01] MEDS: LEVEMIR (INSULIN DETEMIR) 1 UNITS/0.01ML SC SCH (08:32)
[2022-05-01] MEDS: ENOXAPARIN 40MG/0.4ML SYRINGE (J1650 PER 10MG) SC SCH (08:32)
[2022-05-01] MEDS: CEFUROXIME 500 MG TAB PO SCH ×2 (08:33→19:51)
[2022-05-01] MEDS: LOSARTAN 50MG TABLET PO SCH ×2 (08:33→19:52)
[2022-05-01] MEDS: ASPIRIN 325 MG TAB PO SCH (08:33)
[2022-05-01] MEDS: DOCUSATE SODIUM 100MG CAPSULE PO SCH ×2 (08:33→19:51)
[2022-05-01] MEDS: NYSTATIN 100,000 UNITS/GM TOPICAL PWD 15 GM TOP SCH ×2 (08:33→19:51)
[2022-05-01] MEDS: amLODIPine 5 MG TAB PO SCH (08:33)
[2022-05-01] MEDS: CYANOCOBALAMIN 500 MCG TAB PO SCH (08:33)
[2022-05-01] MEDS: BISACODYL 10 MG SUPP PR SCH (08:34)
[2022-05-01] MEDS ORDERED: BISACODYL 10 MG SUPP PR PRN (18:20)
[2022-05-01] MEDS: MIRALAX *UNIT DOSE* 17GM PACKET PO PRN (19:50)
[2022-05-01] MEDS: ATORVASTATIN 20 MG TAB PO SCH (19:51)
[2022-05-01] MEDS: SENNA 8.6 MG TAB (SENOKOT) PO SCH (19:51)
[2022-05-01] MEDS: RAMELTEON 8 MG TAB (ROZEREM) PO PRN (19:51)
[2022-05-01] MEDS ORDERED: QUEtiapine FUMARATE 12.5 MG HALF-TAB PO ONE (20:00)
[2022-05-02] MEDS ORDERED: QUEtiapine FUMARATE 12.5 MG HALF-TAB PO PRN (04:05)
[2022-05-02 06:07] VITALS: BP 124/70
[2022-05-02 07:04] LABS: HEMATOCRIT 36.6 % (36.0-47.0); HEMOGLOBIN 12.2 g/dl (12.0-15.5); MEAN CORPUSCULAR HEMOGLOBIN 31.2 pg (27.0-33.0); MEAN CORPUSCULAR HGB CONC 33.3 g/dl (32.0-36.5); MEAN CORPUSCULAR VOLUME 93.6 fl (80.0-96.0); PLATELET COUNT, AUTOMATED 432 10^3/uL (150-450); RED BLOOD COUNT 3.91 10^6/uL (4.00-5.40); WHITE BLOOD COUNT 9.1 10^3/uL (4.0-10.0)
[2022-05-02 07:44] LABS: ALBUMIN 2.7 GM/DL (3.2-5.2); ALT/SGPT 16 U/L (12-78); BILIRUBIN,TOTAL 0.9 MG/DL (0.2-1.0); BLOOD UREA NITROGEN 22 MG/DL (7-18); CALCIUM LEVEL 8.9 MG/DL (8.8-10.2); CARBON DIOXIDE LEVEL 27 MEQ/L (21-32); CHLORIDE LEVEL 105 MEQ/L (98-107); CREATININE FOR GFR 0.52 MG/DL (0.55-1.30); GLOMERULAR FILTRATION RATE > 60.0 (>32); GLUCOSE, FASTING 166 MG/DL (70-100); POTASSIUM SERUM 3.9 MEQ/L (3.5-5.1); SODIUM LEVEL 138 MEQ/L (136-145); TOTAL PROTEIN 6.5 GM/DL (6.4-8.2)
[2022-05-02] MEDS: LEVEMIR (INSULIN DETEMIR) 1 UNITS/0.01ML SC SCH (08:16)
[2022-05-02] MEDS: ENOXAPARIN 40MG/0.4ML SYRINGE (J1650 PER 10MG) SC SCH (08:16)
[2022-05-02] MEDS: INSULIN LISPRO (NovoLOG) PER UNIT SC SCH ×4 (08:16→21:00)
[2022-05-02] MEDS: amLODIPine 5 MG TAB PO SCH (08:17)
[2022-05-02] MEDS: ACETAMINOPHEN TAB 650MG DOSE (2X325MG) PO PRN ×2 (08:17→20:00)
[2022-05-02] MEDS: DOCUSATE SODIUM 100MG CAPSULE PO SCH ×2 (08:17→20:04)
[2022-05-02] MEDS: LOSARTAN 50MG TABLET PO SCH ×2 (08:17→20:00)
[2022-05-02] MEDS: ASPIRIN 325 MG TAB PO SCH (08:17)
[2022-05-02] MEDS: OYSTER SHELL CALCIUM 500 MG TAB PO SCH (08:17)
[2022-05-02] MEDS: CYANOCOBALAMIN 500 MCG TAB PO SCH (08:17)
[2022-05-02] MEDS: NYSTATIN 100,000 UNITS/GM TOPICAL PWD 15 GM TOP SCH ×2 (08:18→20:00)
[2022-05-02] MEDS: CEFUROXIME 500 MG TAB PO SCH ×2 (08:18→20:03)
[2022-05-02] MEDS: carisoprodoL 350 MG TAB PO PRN ×2 (10:24→20:00)
[2022-05-02] MEDS: SENNA 8.6 MG TAB (SENOKOT) PO SCH (19:59)
[2022-05-02] MEDS: RAMELTEON 8 MG TAB (ROZEREM) PO PRN (19:59)
[2022-05-02] MEDS: ATORVASTATIN 20 MG TAB PO SCH (19:59)
[2022-05-03] MEDS: ACETAMINOPHEN TAB 650MG DOSE (2X325MG) PO PRN (05:08)
[2022-05-03] MEDS: carisoprodoL 350 MG TAB PO PRN ×2 (05:08→20:35)
[2022-05-03 05:18] VITALS: BP 142/61
[2022-05-03 06:44] LABS: HEMATOCRIT 36.8 % (36.0-47.0); MEAN CORPUSCULAR HEMOGLOBIN 30.9 pg (27.0-33.0); MEAN CORPUSCULAR HGB CONC 32.6 g/dl (32.0-36.5); MEAN CORPUSCULAR VOLUME 94.8 fl (80.0-96.0); PLATELET COUNT, AUTOMATED 447 10^3/uL (150-450); RED BLOOD COUNT 3.88 10^6/uL (4.00-5.40)
[2022-05-03 07:20] LABS: ALBUMIN 2.7 GM/DL (3.2-5.2); ALT/SGPT 18 U/L (12-78); BILIRUBIN,TOTAL 0.8 MG/DL (0.2-1.0); BLOOD UREA NITROGEN 22 MG/DL (7-18); CALCIUM LEVEL 9.1 MG/DL (8.8-10.2); CARBON DIOXIDE LEVEL 28 MEQ/L (21-32); CHLORIDE LEVEL 104 MEQ/L (98-107); CREATININE FOR GFR 0.51 MG/DL (0.55-1.30); GLOMERULAR FILTRATION RATE > 60.0 (>32); GLUCOSE, FASTING 159 MG/DL (70-100); POTASSIUM SERUM 3.9 MEQ/L (3.5-5.1); SODIUM LEVEL 137 MEQ/L (136-145); TOTAL PROTEIN 6.3 GM/DL (6.4-8.2)
[2022-05-03] MEDS: LEVEMIR (INSULIN DETEMIR) 1 UNITS/0.01ML SC SCH (09:10)
[2022-05-03] MEDS: INSULIN LISPRO (NovoLOG) PER UNIT SC SCH ×4 (09:10→20:40)
[2022-05-03] MEDS: CEFUROXIME 500 MG TAB PO SCH ×2 (09:11→20:33)
[2022-05-03] MEDS: ANEXSIA, NORCO 7.5MG/325MG TABLET(HYDROCODONE/APAP) PO PRN (09:11)
[2022-05-03] MEDS: ASPIRIN 325 MG TAB PO SCH (09:11)
[2022-05-03] MEDS: OYSTER SHELL CALCIUM 500 MG TAB PO SCH (09:11)
[2022-05-03] MEDS: DOCUSATE SODIUM 100MG CAPSULE PO SCH ×2 (09:11→20:34)
[2022-05-03] MEDS: CYANOCOBALAMIN 500 MCG TAB PO SCH (09:11)
[2022-05-03] MEDS: ENOXAPARIN 40MG/0.4ML SYRINGE (J1650 PER 10MG) SC SCH (09:15)
[2022-05-03] MEDS: NYSTATIN 100,000 UNITS/GM TOPICAL PWD 15 GM TOP SCH ×2 (09:15→20:38)
[2022-05-03] MEDS: LOSARTAN 50MG TABLET PO SCH ×2 (09:15→20:35)
[2022-05-03] MEDS: amLODIPine 5 MG TAB PO SCH (09:15)
[2022-05-03] MEDS ORDERED: PERCOCET 5MG/325MG TAB PO PRN ×2 (11:30)
[2022-05-03] MEDS: MIRALAX *UNIT DOSE* 17GM PACKET PO SCH (12:30)
[2022-05-03] MEDS: SENNA 8.6 MG TAB (SENOKOT) PO SCH (20:33)
[2022-05-03] MEDS: ATORVASTATIN 20 MG TAB PO SCH (20:34)
[2022-05-04 04:08] VITALS: BP 133/82
[2022-05-04 07:08] LABS: HEMATOCRIT 36.2 % (36.0-47.0); HEMOGLOBIN 11.5 g/dl (12.0-15.5); MEAN CORPUSCULAR HEMOGLOBIN 30.5 pg (27.0-33.0); MEAN CORPUSCULAR HGB CONC 31.8 g/dl (32.0-36.5); PLATELET COUNT, AUTOMATED 457 10^3/uL (150-450); RED BLOOD COUNT 3.77 10^6/uL (4.00-5.40)
[2022-05-04 07:45] LABS: ALBUMIN 2.5 GM/DL (3.2-5.2); ALT/SGPT 16 U/L (12-78); BILIRUBIN,TOTAL 0.6 MG/DL (0.2-1.0); BLOOD UREA NITROGEN 17 MG/DL (7-18); CALCIUM LEVEL 8.4 MG/DL (8.8-10.2); CARBON DIOXIDE LEVEL 27 MEQ/L (21-32); CHLORIDE LEVEL 104 MEQ/L (98-107); GLOMERULAR FILTRATION RATE > 60.0 (>32); GLUCOSE, FASTING 138 MG/DL (70-100); POTASSIUM SERUM 4.1 MEQ/L (3.5-5.1); SODIUM LEVEL 137 MEQ/L (136-145); TOTAL PROTEIN 6.1 GM/DL (6.4-8.2)
[2022-05-04] MEDS: ENOXAPARIN 40MG/0.4ML SYRINGE (J1650 PER 10MG) SC SCH (09:00)
[2022-05-04] MEDS ORDERED: SENN18TA PO (09:33)
[2022-05-04] MEDS ORDERED: OXYC-517 PO (09:33)
[2022-05-04] MEDS ORDERED: MIRA1POW3 PO (09:33)
[2022-05-04] MEDS ORDERED: LIDO1PAD TOP (09:33)
[2022-05-04] MEDS ORDERED: CEFU50TA PO (09:33)
[2022-05-04] MEDS ORDERED: ACET1TAB55 PO (09:33)
[2022-05-04] MEDS: MIRALAX *UNIT DOSE* 17GM PACKET PO SCH (09:46)
[2022-05-04] MEDS: CYANOCOBALAMIN 500 MCG TAB PO SCH (09:47)
[2022-05-04] MEDS: OYSTER SHELL CALCIUM 500 MG TAB PO SCH (09:47)
[2022-05-04 09:48] VITALS: BP 132/82
[2022-05-04] MEDS: ASPIRIN 325 MG TAB PO SCH (09:48)
[2022-05-04] MEDS: CEFUROXIME 500 MG TAB PO SCH (09:48)
[2022-05-04] MEDS: DOCUSATE SODIUM 100MG CAPSULE PO SCH (09:48)
[2022-05-04] MEDS: amLODIPine 5 MG TAB PO SCH (09:48)
[2022-05-04] MEDS: LOSARTAN 50MG TABLET PO SCH (09:48)
[2022-05-04] MEDS: NYSTATIN 100,000 UNITS/GM TOPICAL PWD 15 GM TOP SCH (09:50)
[2022-05-04] MEDS: LEVEMIR (INSULIN DETEMIR) 1 UNITS/0.01ML SC SCH (09:53)
[2022-05-04] MEDS: INSULIN LISPRO (NovoLOG) PER UNIT SC SCH ×2 (09:58→13:47)
== END 2022-05-04 15:15 | DRG 563 ==
LOC: M ED 08:28 → EDBD 08:28 → M ED INP 08:29 → M MS5PR 21:45 → OBSVTOIN 04-28 18:13
PROVIDERS: ADMIT Internal Medicine; ATTEND Student in an Organized Health Care Education/Training Program
DX: S42.295A Other nondisplaced fracture of upper end of left humerus, initial encounter for closed fracture (principal); I50.32 Chronic diastolic (congestive) heart failure; N39.0 Urinary tract infection, site not specified; E11.9 Type 2 diabetes mellitus without complications; I11.0 Hypertensive heart disease with heart failure; E78.5 Hyperlipidemia, unspecified; E03.9 Hypothyroidism, unspecified; R42 Dizziness and giddiness; K44.9 Diaphragmatic hernia without obstruction or gangrene; M19.90 Unspecified osteoarthritis, unspecified site; R26.81 Unsteadiness on feet; K59.03 Drug induced constipation; B96.4 Proteus (mirabilis) (morganii) as the cause of diseases classified elsewhere; R41.0 Disorientation, unspecified; T40.605A Adverse effect of unspecified narcotics, initial encounter; Z85.3 Personal history of malignant neoplasm of breast; W18.30XA Fall on same level, unspecified, initial encounter; Y92.013 Bedroom of single-family (private) house as the place of occurrence of the external cause; Y93.89 Activity, other specified; Y99.8 Other external cause status; Z86.010 Personal history of colon polyps; Z90.11 Acquired absence of right breast and nipple; Z79.84 Long term (current) use of oral hypoglycemic drugs; Z79.890 Hormone replacement therapy; Z86.73 Personal history of transient ischemic attack (TIA), and cerebral infarction without residual deficits; Z79.82 Long term (current) use of aspirin; Z79.899 Other long term (current) drug therapy

== ENCOUNTER → 2022-05-26 | Outpatient (CLI) | payer MEDICARE ==
[~2022-05-26] MED LIST changes: +ACET1TAB55 PO; +BAYE325T16 PO; +CEFU50TA PO; +LIDO1PAD TOP; +MIRA1POW3 PO; +OXYC-517 PO; +OYST1TAB PO; +SENN18TA PO; +VITA-168 PO; +VITA100018 PO
== END ==
LOC: M SOG 10:10
PROVIDERS: ATTEND Orthopaedic Surgery Adult Reconstructive Orthopaedic Surgery
DX: S42.292A Other displaced fracture of upper end of left humerus, initial encounter for closed fracture (principal)

== ENCOUNTER → 2022-05-27 | Outpatient (REF) | payer MEDICARE ==
[2022-05-27 13:40] LABS: BASO % 0.4 % (0.0-1.0); EOS # 0.1 10^3/uL (0.0-0.5); EOS % 1.2 % (0.0-3.0); HEMATOCRIT 45.1 % (36.0-47.0); HEMOGLOBIN 14.3 g/dl (12.0-15.5); LYMPH % 21.2 % (24.0-44.0); MEAN CORPUSCULAR HEMOGLOBIN 30.9 pg (27.0-33.0); MEAN CORPUSCULAR HGB CONC 31.7 g/dl (32.0-36.5); MEAN CORPUSCULAR VOLUME 97.4 fl (80.0-96.0); MONO # 0.7 10^3/uL (0.0-0.8); NEUTROPHILS # 6.4 10^3/uL (1.5-8.5); NEUTROPHILS % 68.9 % (36.0-66.0); PLATELET COUNT, AUTOMATED 423 10^3/uL (150-450); RED BLOOD COUNT 4.63 10^6/uL (4.00-5.40); WHITE BLOOD COUNT 9.2 10^3/uL (4.0-10.0)
[2022-05-27 14:14] LABS: BLOOD UREA NITROGEN 10 MG/DL (9-23); CALCIUM LEVEL 9.9 MG/DL (8.3-10.6); CARBON DIOXIDE LEVEL 22 MMOL/L (20-31); CHLORIDE LEVEL 98 MMOL/L (98-107); CREATININE FOR GFR 0.47 MG/DL (0.55-1.30); GLOMERULAR FILTRATION RATE > 60.0 (>32); GLUCOSE, FASTING 117 MG/DL (74-106); POTASSIUM SERUM 3.9 MMOL/L (3.5-5.1); SODIUM LEVEL 136 MMOL/L (136-145)
== END ==
LOC: M SFHCADAM 08:51
PROVIDERS: ATTEND Physician Assistant
DX: N30.00 Acute cystitis without hematuria (principal); R26.81 Unsteadiness on feet; F32.9 Major depressive disorder, single episode, unspecified; E11.9 Type 2 diabetes mellitus without complications; I11.9 Hypertensive heart disease without heart failure

== ENCOUNTER → 2022-06-11 | Outpatient (CLI) | payer MEDICARE | LOC: M ADAMS 09:38 | PROVIDERS: ATTEND Urology | DX: N20.0 Calculus of kidney (principal) ==

== ENCOUNTER → 2022-06-14 | Outpatient (REF) | payer MEDICARE ==
[2022-06-14 17:11] LABS: BASO % 0.5 % (0.0-1.0); EOS % 1.7 % (0.0-3.0); HEMATOCRIT 44.2 % (36.0-47.0); HEMOGLOBIN 13.8 g/dl (12.0-15.5); LYMPH # 1.8 10^3/uL (1.5-5.0); LYMPH % 18.9 % (24.0-44.0); MEAN CORPUSCULAR HEMOGLOBIN 30.8 pg (27.0-33.0); MEAN CORPUSCULAR HGB CONC 31.2 g/dl (32.0-36.5); MEAN CORPUSCULAR VOLUME 98.7 fl (80.0-96.0); MONO % 7.1 % (2.0-8.0); NEUTROPHILS # 6.8 10^3/uL (1.5-8.5); NEUTROPHILS % 71.5 % (36.0-66.0); PLATELET COUNT, AUTOMATED 471 10^3/uL (150-450); RED BLOOD COUNT 4.48 10^6/uL (4.00-5.40); WHITE BLOOD COUNT 9.5 10^3/uL (4.0-10.0)
[2022-06-14 17:12] LABS: BASO # 0.1 10^3/uL (0.0-0.2); EOS # 0.2 10^3/uL (0.0-0.5); MONO # 0.7 10^3/uL (0.0-0.8)
[2022-06-14 17:56] LABS: MAGNESIUM LEVEL 1.5 MG/DL (1.8-2.4)
[2022-06-14 17:58] LABS: BLOOD UREA NITROGEN 14 MG/DL (9-23); CALCIUM LEVEL 9.3 MG/DL (8.3-10.6); CARBON DIOXIDE LEVEL 29 MMOL/L (20-31); CHLORIDE LEVEL 100 MMOL/L (98-107); CREATININE FOR GFR 0.46 MG/DL (0.55-1.30); GLOMERULAR FILTRATION RATE > 60.0 (>32); GLUCOSE, FASTING 99 MG/DL (74-106); SODIUM LEVEL 137 MMOL/L (136-145); THYROID STIMULATING HORMONE 1.568 uIU/ML (0.55-4.78)
[2022-06-14 17:59] LABS: FREE T4 1.06 NG/DL (0.89-1.76)
== END ==
LOC: M SFHCADAM 15:16
PROVIDERS: ATTEND Physician Assistant
DX: I49.8 Other specified cardiac arrhythmias (principal); I49.9 Cardiac arrhythmia, unspecified

== ENCOUNTER → 2022-06-28 | Outpatient (CLI) | payer MEDICARE | LOC: M SOG 07:59 | PROVIDERS: ATTEND Orthopaedic Surgery Adult Reconstructive Orthopaedic Surgery | DX: S42.292D Other displaced fracture of upper end of left humerus, subsequent encounter for fracture with routine healing (principal); W18.30XD Fall on same level, unspecified, subsequent encounter ==

== ENCOUNTER → 2022-06-30 | Outpatient (REF) | payer MEDICARE | LOC: M SFHCADAM 12:38 | PROVIDERS: ATTEND Physician Assistant | DX: N30.00 Acute cystitis without hematuria (principal) ==

== ENCOUNTER → 2022-07-15 | Outpatient (CLI) | payer MEDICARE | LOC: M SOG 07:57 | PROVIDERS: ATTEND Orthopaedic Surgery Adult Reconstructive Orthopaedic Surgery | DX: S42.292D Other displaced fracture of upper end of left humerus, subsequent encounter for fracture with routine healing (principal); W18.30XD Fall on same level, unspecified, subsequent encounter ==

== ENCOUNTER → 2022-08-17 | Outpatient (CLI) | payer MEDICARE | LOC: M ADAMS 08:41 | PROVIDERS: ATTEND Physician Assistant | DX: R22.2 Localized swelling, mass and lump, trunk (principal); M85.811 Other specified disorders of bone density and structure, right shoulder ==

== ENCOUNTER → 2022-10-13 | Outpatient (REF) | payer MEDICARE ==
[2022-10-13 17:15] LABS: HEMATOCRIT 45.3 % (36.0-47.0); HEMOGLOBIN 14.5 g/dl (12.0-15.5); MEAN CORPUSCULAR HEMOGLOBIN 31.1 pg (27.0-33.0); MEAN CORPUSCULAR VOLUME 97.2 fl (80.0-96.0); PLATELET COUNT, AUTOMATED 435 10^3/uL (150-450); RED BLOOD COUNT 4.66 10^6/uL (4.00-5.40); WHITE BLOOD COUNT 10.8 10^3/uL (4.0-10.0)
[2022-10-13 17:33] LABS: BLOOD UREA NITROGEN 18 MG/DL (9-23); CALCIUM LEVEL 10.2 MG/DL (8.3-10.6); CARBON DIOXIDE LEVEL 27 MMOL/L (20-31); CHLORIDE LEVEL 102 MMOL/L (98-107); CREATININE FOR GFR 0.53 MG/DL (0.55-1.30); GLOMERULAR FILTRATION RATE > 60.0 (>32); GLUCOSE, FASTING 105 MG/DL (74-106); POTASSIUM SERUM 4.4 MMOL/L (3.5-5.1); SODIUM LEVEL 141 MMOL/L (136-145)
[2022-10-13 17:54] LABS: HEMOGLOBIN A1c 6.5 % (4.0-6.0)
== END ==
LOC: M SFHCADAM 13:50
PROVIDERS: ATTEND Family Medicine
DX: E11.40 Type 2 diabetes mellitus with diabetic neuropathy, unspecified (principal); E53.8 Deficiency of other specified B group vitamins; D75.839 Thrombocytosis, unspecified

== ENCOUNTER 2022-11-04 10:23 | Emergency (ER) | payer MEDICARE ==
[~2022-11-04] VITALS: Ht 160 cm; Wt 91.8 kg
[2022-11-04] MEDS ORDERED: OXYB5TAB10 (10:38)
[2022-11-04] MEDS ORDERED: PREDOPD (10:38)
[2022-11-04] MEDS ORDERED: TRAM50TA2 PO (12:39)
[2022-11-04 13:14] VITALS: BP 170/96
== END 2022-11-04 13:28 | disposition home or self-care (01) ==
LOC: EDBD 10:23 → M ED 10:23
DX: M79.602 Pain in left arm (principal); I10 Essential (primary) hypertension; E78.5 Hyperlipidemia, unspecified; Z79.82 Long term (current) use of aspirin; Z79.899 Other long term (current) drug therapy; Z79.84 Long term (current) use of oral hypoglycemic drugs

== ENCOUNTER 2022-11-29 06:06 | Day surgery (SDC) | payer MEDICARE ==
[~2022-11-29] VITALS: Ht 160 cm; Wt 92.4 kg
[~2022-11-29 06:06] MED LIST changes: -COZA50TA PO; +CYCLOPENTOLATE 1% OPHTH SOLN 2ML BTL OD SCH; +FLURBIPROFEN 0.03% OPHTH SOLN 2.5 ML OD SCH; +LOSA-528 PO; -LOSA100T45 PO; +LOSA100T46 PO; +OXYB5TAB10 PO; +PHENYLEPHRINE 2.5% OPHTH SOL 2ML OD SCH; +PREDOPD OU; +SLOWTAB2 PO; +TETRACAINE 0.5% OPHTH SOLN 4ML OD SCH; +TRAM50TA2 PO
[2022-11-29] MEDS ORDERED: LIDOCAINE 1% SDV 5ML VIAL As Ordered ONE (06:58)
[2022-11-29] MEDS ORDERED: LR 1,000 ML IV SCH (07:00)
[2022-11-29] MEDS ORDERED: LABETALOL 100MG/20ML VIAL As Ordered ONE (07:39)
[2022-11-29] MEDS ORDERED: MIDAZOLAM INJ 2MG/2ML VIAL As Ordered ONE (07:48)
[2022-11-29] MEDS ORDERED: fentaNYL 100 MCG/2 ML INJECTION As Ordered ONE (07:48)
[2022-11-29 08:30] VITALS: BP 138/70
== END 2022-11-29 08:47 | disposition home or self-care (01) ==
LOC: M SDC 06:06
PROVIDERS: ATTEND Ophthalmology
DX: H25.11 Age-related nuclear cataract, right eye (principal); I10 Essential (primary) hypertension; E78.5 Hyperlipidemia, unspecified; E11.9 Type 2 diabetes mellitus without complications; Z79.82 Long term (current) use of aspirin; Z79.899 Other long term (current) drug therapy; Z79.84 Long term (current) use of oral hypoglycemic drugs
CPT/HCPCS: 66984; J2250; J3010; V2632

== ENCOUNTER → 2023-04-13 | Outpatient (REF) | payer MEDICARE ==
[~2023-04-13] MED LIST changes: -CYCLOPENTOLATE 1% OPHTH SOLN 2ML BTL OD SCH; -FLURBIPROFEN 0.03% OPHTH SOLN 2.5 ML OD SCH; +NIFE-3 PO; -NIFE30TA50 PO; -PHENYLEPHRINE 2.5% OPHTH SOL 2ML OD SCH; +SENN-111 PO; -SENN18TA PO; -TETRACAINE 0.5% OPHTH SOLN 4ML OD SCH
[2023-04-13 13:27] LABS: HEMATOCRIT 45.3 % (36.0-47.0); HEMOGLOBIN 14.8 g/dl (12.0-15.5); MEAN CORPUSCULAR HEMOGLOBIN 31.8 pg (27.0-33.0); MEAN CORPUSCULAR HGB CONC 32.7 g/dl (32.0-36.5); MEAN CORPUSCULAR VOLUME 97.2 fl (80.0-96.0); PLATELET COUNT, AUTOMATED 468 10^3/uL (150-450); RED BLOOD COUNT 4.66 10^6/uL (4.00-5.40); WHITE BLOOD COUNT 8.8 10^3/uL (4.0-10.0)
[2023-04-13 13:36] LABS: ALKALINE PHOSPHATASE 68 U/L (46-116); ALT/SGPT 30 U/L (7.0-40); AST/SGOT 26 U/L (<34); BILIRUBIN,TOTAL 0.6 MG/DL (0.3-1.2); BLOOD UREA NITROGEN 11 MG/DL (9-23); CALCIUM LEVEL 10.1 MG/DL (8.3-10.6); CARBON DIOXIDE LEVEL 26 MMOL/L (20-31); CHLORIDE LEVEL 104 MMOL/L (98-107); CHOLESTEROL LEVEL 126 MG/DL (<200); CHOLESTEROL RISK RATIO 2.65 (<5); CREATININE FOR GFR 0.51 MG/DL (0.55-1.30); FOLATE > 24.00 NG/ML (>5.4); FREE T4 1.05 NG/DL (0.89-1.76); GLOMERULAR FILTRATION RATE > 60.0 (>32); GLUCOSE, FASTING 153 MG/DL (74-106); HDL CHOLESTEROL 47.4 MG/DL (>40); LDL CHOLESTEROL 46.6 MG/DL (<100); NON-HDL-C 78.6 MG/DL; POTASSIUM SERUM 4.6 MMOL/L (3.5-5.1); SODIUM LEVEL 140 MMOL/L (136-145); THYROID STIMULATING HORMONE 2.505 uIU/ML (0.55-4.78); TOTAL PROTEIN 7.4 G/DL (5.7-8.2); TRIGLYCERIDES LEVEL 160 MG/DL (<150); VITAMIN B12 LEVEL 1775 PG/ML (211-911)
== END ==
LOC: M SFHCADAM 08:46
PROVIDERS: ATTEND Family Medicine
DX: E78.5 Hyperlipidemia, unspecified (principal); E11.40 Type 2 diabetes mellitus with diabetic neuropathy, unspecified; I69.311 Memory deficit following cerebral infarction; R26.81 Unsteadiness on feet

== ENCOUNTER → 2023-06-08 | Outpatient (CLI) | payer MEDICARE ==
[~2023-06-08] MED LIST changes: -OXYB5TAB10 PO; +OXYB5TAB11 PO
== END ==
LOC: M PLAIMG 09:33
PROVIDERS: ATTEND Urology
DX: N20.0 Calculus of kidney (principal)

== ENCOUNTER → 2023-06-21 | Outpatient (REF) | payer MEDICARE ==
[2023-06-21 14:51] LABS: HEMATOCRIT 46.5 % (36.0-47.0); HEMOGLOBIN 14.6 g/dl (12.0-15.5); MEAN CORPUSCULAR HEMOGLOBIN 30.4 pg (27.0-33.0); MEAN CORPUSCULAR HGB CONC 31.4 g/dl (32.0-36.5); MEAN CORPUSCULAR VOLUME 96.7 fl (80.0-96.0); PLATELET COUNT, AUTOMATED 422 10^3/uL (150-450); RED BLOOD COUNT 4.81 10^6/uL (4.00-5.40); WHITE BLOOD COUNT 9.3 10^3/uL (4.0-10.0)
[2023-06-21 15:17] LABS: BLOOD UREA NITROGEN 8 MG/DL (9-23); CALCIUM LEVEL 10.2 MG/DL (8.3-10.6); CARBON DIOXIDE LEVEL 26 MMOL/L (20-31); CHLORIDE LEVEL 100 MMOL/L (98-107); CREATININE FOR GFR 0.45 MG/DL (0.55-1.30); GLOMERULAR FILTRATION RATE > 60.0 (>32); GLUCOSE, FASTING 132 MG/DL (74-106); POTASSIUM SERUM 4.4 MMOL/L (3.5-5.1); SODIUM LEVEL 137 MMOL/L (136-145)
== END ==
LOC: M LABDRWAD 12:53
PROVIDERS: ATTEND Urology
DX: Z01.818 Encounter for other preprocedural examination (principal); N20.0 Calculus of kidney; N39.0 Urinary tract infection, site not specified

== ENCOUNTER 2023-06-25 14:46 | Inpatient (IN) | payer MEDICARE ==
[~2023-06-25] VITALS: Ht 167.6 cm; Wt 96.3 kg
[2023-06-25] MEDS ORDERED: BACTDSTA PO (15:06)
[2023-06-25 15:44] LABS: BASO % 0.6 % (0.0-1.0); EOS % 0.4 % (0.0-3.0); HEMOGLOBIN 13.8 g/dl (12.0-15.5); LYMPH # 0.7 10^3/uL (1.5-5.0); LYMPH % 10.1 % (24.0-44.0); MEAN CORPUSCULAR HEMOGLOBIN 30.5 pg (27.0-33.0); MEAN CORPUSCULAR HGB CONC 32.9 g/dl (32.0-36.5); MEAN CORPUSCULAR VOLUME 92.9 fl (80.0-96.0); MONO # 0.9 10^3/uL (0.0-0.8); MONO % 12.6 % (2.0-8.0); NEUTROPHILS # 5.3 10^3/uL (1.5-8.5); PLATELET COUNT, AUTOMATED 357 10^3/uL (150-450); RED BLOOD COUNT 4.52 10^6/uL (4.00-5.40)
[2023-06-25 15:56] LABS: INR 1.14; PROTHROMBIN TIME 14.3 SECONDS (12.5-14.5)
[2023-06-25 15:57] LABS: PARTIAL THROMBOPLASTIN TIME 26.3 SECONDS (24.8-34.2)
[2023-06-25 16:11] LABS: ALBUMIN 3.7 G/DL (3.2-5.2); ALKALINE PHOSPHATASE 55 U/L (46-116); ALT/SGPT 35 U/L (7.0-40); AST/SGOT 33 U/L (<34); BILIRUBIN,DIRECT 0.2 MG/DL (<0.4); BILIRUBIN,TOTAL 0.5 MG/DL (0.3-1.2); BLOOD UREA NITROGEN 10 MG/DL (9-23); CALCIUM LEVEL 9.8 MG/DL (8.3-10.6); CARBON DIOXIDE LEVEL 23 MMOL/L (20-31); CHLORIDE LEVEL 101 MMOL/L (98-107); CK-MB VALUE MASS < 1.0 NG/ML (<3.6); CPK CREATINE PHOSPHOKINASE 49 U/L (34-145); CREATININE FOR GFR 0.55 MG/DL (0.55-1.30); GLOMERULAR FILTRATION RATE > 60.0 (>32); GLUCOSE, FASTING 130 MG/DL (74-106); MB/CK RELATIVE INDEX 2.04 (< OR =4); POTASSIUM SERUM 4.1 MMOL/L (3.5-5.1); SODIUM LEVEL 136 MMOL/L (136-145); TOTAL PROTEIN 7.1 G/DL (5.7-8.2)
[2023-06-25 16:14] LABS: RSV AMPLIFICATION NEGATIVE (NEGATIVE)
[2023-06-25 16:15] LABS: FREE T4 0.94 NG/DL (0.89-1.76); THYROID STIMULATING HORMONE 1.403 uIU/ML (0.55-4.78)
[2023-06-25] MEDS ORDERED: NS 500 ML IV ONE (16:15)
[2023-06-25] MEDS ORDERED: cefTRIAXone SOD 2 GM in D5W MINI-BAG PLUS 50 ML IV ONE (16:15)
[2023-06-25] MEDS ORDERED: SODIUM CHLORIDE 0.9% 1000ML IV STA (17:07)
[2023-06-25] MEDS ORDERED: DEXTROSE 50% 50ML SYRINGE IV PRN (17:10)
[2023-06-25] MEDS ORDERED: GLUCOSE 4GM CHEW TABLET PO PRN (17:10)
[2023-06-25] MEDS ORDERED: GLUCAGON INJ 1MG VIAL SC PRN (17:10)
[2023-06-25] MEDS ORDERED: ISOVUE-370 76% 100ML VIAL As Ordered ONE (17:18)
[2023-06-25] MEDS ORDERED: OXYB10TA23 PO (17:21)
[2023-06-25] MEDS ORDERED: HOME MED LIST COMPLETE! XX SCH (17:25)
[2023-06-25 17:28] LABS: PROCALCITONIN 0.04 ng/ml
[2023-06-25] MEDS: INSULIN LISPRO (NovoLOG) PER UNIT SC SCH ×2 (17:30→21:00)
[2023-06-25 18:01] VITALS: BP 140/83; TEMP 100.8; O2SAT 92
[2023-06-25] MEDS: ACETAMINOPHEN TAB 650MG DOSE (2X325MG) PO PRN (19:02)
[2023-06-25 21:00] VITALS: BP 110/70; TEMP 99; O2SAT 91
[2023-06-26] VITALS (7 sets, daily range): BP systolic 138–142; BP diastolic 75–78; TEMP 96.8–100.3; O2SAT 88–92
[2023-06-26] MEDS: ACETAMINOPHEN TAB 650MG DOSE (2X325MG) PO PRN ×3 (05:29→16:16)
[2023-06-26 05:43] LABS: HEMOGLOBIN 13.8 g/dl (12.0-15.5); MEAN CORPUSCULAR HEMOGLOBIN 30.7 pg (27.0-33.0); MEAN CORPUSCULAR HGB CONC 33.7 g/dl (32.0-36.5); MEAN CORPUSCULAR VOLUME 91.3 fl (80.0-96.0); PLATELET COUNT, AUTOMATED 333 10^3/uL (150-450); RED BLOOD COUNT 4.49 10^6/uL (4.00-5.40); WHITE BLOOD COUNT 6.9 10^3/uL (4.0-10.0)
[2023-06-26 06:07] LABS: BLOOD UREA NITROGEN 8 MG/DL (9-23); CALCIUM LEVEL 8.1 MG/DL (8.3-10.6); CARBON DIOXIDE LEVEL 23 MMOL/L (20-31); CHLORIDE LEVEL 98 MMOL/L (98-107); CREATININE FOR GFR 0.46 MG/DL (0.55-1.30); GLOMERULAR FILTRATION RATE > 60.0 (>32); GLUCOSE, FASTING 123 MG/DL (74-106); POTASSIUM SERUM 3.7 MMOL/L (3.5-5.1); SODIUM LEVEL 130 MMOL/L (136-145)
[2023-06-26] MEDS ORDERED: FUROSEMIDE 20MG/2ML VIAL IV ONE (07:00)
[2023-06-26] MEDS ORDERED: OLANZapine 2.5MG TABLET PO ONE (07:45)
[2023-06-26] MEDS: amLODIPine 5 MG TAB PO SCH ×2 (08:33→21:36)
[2023-06-26] MEDS: ASPIRIN 325 MG TAB PO SCH (08:33)
[2023-06-26] MEDS: ENOXAPARIN 40MG/0.4ML SYRINGE (J1650 PER 10MG) SC SCH (08:33)
[2023-06-26] MEDS: LOSARTAN 50MG TABLET PO SCH ×2 (08:34→21:37)
[2023-06-26] MEDS: INSULIN LISPRO (NovoLOG) PER UNIT SC SCH ×4 (08:35→21:00)
[2023-06-26] MEDS: cefTRIAXone SOD 2 GM in D5W MINI-BAG PLUS 50 ML IV SCH (15:17)
[2023-06-26] MEDS: ATORVASTATIN 20 MG TAB PO SCH (21:36)
[2023-06-27 05:18] VITALS: BP 115/69; TEMP 98.8; O2SAT 91
[2023-06-27 06:44] LABS: HEMATOCRIT 42.8 % (36.0-47.0); HEMOGLOBIN 14.3 g/dl (12.0-15.5); MEAN CORPUSCULAR HEMOGLOBIN 30.9 pg (27.0-33.0); MEAN CORPUSCULAR HGB CONC 33.4 g/dl (32.0-36.5); MEAN CORPUSCULAR VOLUME 92.4 fl (80.0-96.0); PLATELET COUNT, AUTOMATED 350 10^3/uL (150-450); RED BLOOD COUNT 4.63 10^6/uL (4.00-5.40); WHITE BLOOD COUNT 6.4 10^3/uL (4.0-10.0)
[2023-06-27 07:04] LABS: BLOOD UREA NITROGEN 11 MG/DL (9-23); CALCIUM LEVEL 9.5 MG/DL (8.3-10.6); CARBON DIOXIDE LEVEL 24 MMOL/L (20-31); CHLORIDE LEVEL 103 MMOL/L (98-107); CREATININE FOR GFR 0.53 MG/DL (0.55-1.30); GLOMERULAR FILTRATION RATE > 60.0 (>32); GLUCOSE, FASTING 135 MG/DL (74-106); POTASSIUM SERUM 3.7 MMOL/L (3.5-5.1); SODIUM LEVEL 137 MMOL/L (136-145)
[2023-06-27] MEDS: ENOXAPARIN 40MG/0.4ML SYRINGE (J1650 PER 10MG) SC SCH (07:28)
[2023-06-27] MEDS: ASPIRIN 325 MG TAB PO SCH (07:28)
[2023-06-27] MEDS: amLODIPine 5 MG TAB PO SCH ×3 (07:29→21:52)
[2023-06-27] MEDS: LOSARTAN 50MG TABLET PO SCH ×2 (07:29→21:52)
[2023-06-27] MEDS: INSULIN LISPRO (NovoLOG) PER UNIT SC SCH ×4 (07:31→21:00)
[2023-06-27] MEDS ORDERED: PROHANCE 279.3MG/ML 15ML VIAL As Ordered ONE (13:49)
[2023-06-27 14:00] VITALS: BP 115/68; TEMP 97.9; O2SAT 91
[2023-06-27] MEDS: cefTRIAXone SOD 2 GM in D5W MINI-BAG PLUS 50 ML IV SCH (14:46)
[2023-06-27 18:47] LABS: CHOLESTEROL LEVEL 121 MG/DL (<200); CHOLESTEROL RISK RATIO 3.42 (<5); HDL CHOLESTEROL 35.3 MG/DL (>40); LDL CHOLESTEROL 58.3 MG/DL (<100); NON-HDL-C 85.7 MG/DL; TRIGLYCERIDES LEVEL 137 MG/DL (<150)
[2023-06-27 19:29] LABS: HEMOGLOBIN A1c 7.4 % (4.0-6.0)
[2023-06-27 20:10] VITALS: BP 157/75; TEMP 97.9; O2SAT 94
[2023-06-27] MEDS: ATORVASTATIN 20 MG TAB PO SCH (21:51)
[2023-06-28 05:25] VITALS: BP 137/69; TEMP 97; O2SAT 92
[2023-06-28 06:35] LABS: HEMATOCRIT 41.9 % (36.0-47.0); HEMOGLOBIN 13.7 g/dl (12.0-15.5); MEAN CORPUSCULAR HEMOGLOBIN 30.6 pg (27.0-33.0); MEAN CORPUSCULAR HGB CONC 32.7 g/dl (32.0-36.5); MEAN CORPUSCULAR VOLUME 93.7 fl (80.0-96.0); PLATELET COUNT, AUTOMATED 381 10^3/uL (150-450); RED BLOOD COUNT 4.47 10^6/uL (4.00-5.40); WHITE BLOOD COUNT 7.3 10^3/uL (4.0-10.0)
[2023-06-28] MEDS ORDERED: ISOVUE-370 76% 100ML VIAL As Ordered ONE (07:56)
[2023-06-28 08:01] LABS: BLOOD UREA NITROGEN 17 MG/DL (9-23); CALCIUM LEVEL 8.8 MG/DL (8.3-10.6); CARBON DIOXIDE LEVEL 25 MMOL/L (20-31); CHLORIDE LEVEL 104 MMOL/L (98-107); CREATININE FOR GFR 0.52 MG/DL (0.55-1.30); GLOMERULAR FILTRATION RATE > 60.0 (>32); GLUCOSE, FASTING 163 MG/DL (74-106); POTASSIUM SERUM 3.7 MMOL/L (3.5-5.1); SODIUM LEVEL 137 MMOL/L (136-145)
[2023-06-28 08:04] LABS: BASO # 0.1 10^3/uL (0.0-0.2); BASO % 0.7 % (0.0-1.0); EOS # 0.4 10^3/uL (0.0-0.5); EOS % 6.1 % (0.0-3.0); LYMPH # 1.1 10^3/uL (1.5-5.0); LYMPH % 16.5 % (24.0-44.0); MONO # 0.7 10^3/uL (0.0-0.8); MONO % 10.5 % (2.0-8.0); NEUTROPHILS # 4.6 10^3/uL (1.5-8.5); NEUTROPHILS % 66.1 % (36.0-66.0)
[2023-06-28] MEDS ORDERED: ASPIRIN 81MG ENTERIC TABLET PO SCH (09:00)
[2023-06-28] MEDS ORDERED: CLOPIDOGREL 75 MG TAB PO SCH (09:00)
[2023-06-28] MEDS: ASPIRIN 81MG CHEW TABLET PO SCH (10:29)
[2023-06-28] MEDS: ENOXAPARIN 40MG/0.4ML SYRINGE (J1650 PER 10MG) SC SCH (10:30)
[2023-06-28] MEDS: amLODIPine 5 MG TAB PO SCH ×2 (10:31→21:02)
[2023-06-28] MEDS: LOSARTAN 50MG TABLET PO SCH ×2 (10:31→21:03)
[2023-06-28] MEDS: INSULIN LISPRO (NovoLOG) PER UNIT SC SCH ×4 (10:32→21:00)
[2023-06-28] MEDS ORDERED: CEFD1CAP9 PO (10:43)
[2023-06-28 14:00] VITALS: BP 109/64; TEMP 98.2; O2SAT 95
[2023-06-28] MEDS: cefTRIAXone SOD 2 GM in D5W MINI-BAG PLUS 50 ML IV SCH (16:20)
[2023-06-28 20:50] VITALS: BP 139/64; TEMP 98.6; O2SAT 94
[2023-06-28] MEDS: ATORVASTATIN 20 MG TAB PO SCH (21:01)
[2023-06-29 06:05] VITALS: BP 131/65; TEMP 97.7; O2SAT 95
[2023-06-29 06:06] LABS: HEMATOCRIT 40.4 % (36.0-47.0); HEMOGLOBIN 13.3 g/dl (12.0-15.5); MEAN CORPUSCULAR HEMOGLOBIN 30.6 pg (27.0-33.0); MEAN CORPUSCULAR HGB CONC 32.9 g/dl (32.0-36.5); MEAN CORPUSCULAR VOLUME 92.9 fl (80.0-96.0); PLATELET COUNT, AUTOMATED 361 10^3/uL (150-450); RED BLOOD COUNT 4.35 10^6/uL (4.00-5.40); WHITE BLOOD COUNT 6.6 10^3/uL (4.0-10.0)
[2023-06-29] MEDS: ENOXAPARIN 40MG/0.4ML SYRINGE (J1650 PER 10MG) SC SCH (08:32)
[2023-06-29] MEDS: ASPIRIN 81MG CHEW TABLET PO SCH (08:33)
[2023-06-29] MEDS: INSULIN LISPRO (NovoLOG) PER UNIT SC SCH (08:33)
[2023-06-29 08:34] VITALS: BP 132/65
[2023-06-29] MEDS: LOSARTAN 50MG TABLET PO SCH (08:34)
[2023-06-29] MEDS: amLODIPine 5 MG TAB PO SCH (08:34)
== END 2023-06-29 09:14 | disposition home or self-care (01) | DRG 871 ==
LOC: M ED 14:46 → EDBD 14:46 → M ED INP 16:43 → M MSPAV 18:05
PROVIDERS: ADMIT Internal Medicine; ATTEND Internal Medicine
DX: A41.9 Sepsis, unspecified organism (principal); G93.41 Metabolic encephalopathy; N39.0 Urinary tract infection, site not specified; E87.20 Acidosis, unspecified; B96.20 Unspecified Escherichia coli [E. coli] as the cause of diseases classified elsewhere; R34 Anuria and oliguria; R32 Unspecified urinary incontinence; R26.89 Other abnormalities of gait and mobility; F32.A Depression, unspecified; R65.20 Severe sepsis without septic shock; E78.5 Hyperlipidemia, unspecified; R44.1 Visual hallucinations; F41.9 Anxiety disorder, unspecified; E03.9 Hypothyroidism, unspecified; E11.9 Type 2 diabetes mellitus without complications; Z85.3 Personal history of malignant neoplasm of breast; I10 Essential (primary) hypertension; Z86.73 Personal history of transient ischemic attack (TIA), and cerebral infarction without residual deficits; Z79.82 Long term (current) use of aspirin; Z79.4 Long term (current) use of insulin; Z79.899 Other long term (current) drug therapy; Z20.822 Contact with and (suspected) exposure to COVID-19; Z90.11 Acquired absence of right breast and nipple; Z98.41 Cataract extraction status, right eye; Z98.42 Cataract extraction status, left eye; Z90.49 Acquired absence of other specified parts of digestive tract; Z87.891 Personal history of nicotine dependence

== ENCOUNTER → 2023-07-07 | Outpatient (REF) | payer MEDICARE ==
[~2023-07-07] MED LIST changes: +BACTDSTA PO; +CEFD1CAP9 PO; +OXYB10TA23 PO
[2023-07-07 15:08] LABS: APPEARANCE, URINE TURBID (CLEAR); BACTERIA, URINE AUTO NEGATIVE (NEGATIVE); BILIRUBIN, URINE AUTO NEGATIVE (NEGATIVE); BLOOD, URINE BLOOD 1+ (NEGATIVE); COLOR, URINE AMBER (YELLOW); GLUCOSE, URINE (UA) AUTO NEGATIVE (NEGATIVE); KETONE, URINE AUTO NEGATIVE (NEGATIVE); LEUKOCYTE ESTERASE, URINE AUTO 3+ (NEGATIVE); MUCUS, URINE MODERATE (NEGATIVE); NITRITE, URINE AUTO NEGATIVE (NEGATIVE); PROTEIN, URINE AUTO 1+ mg/dL (NEGATIVE); RBC, URINE AUTO 0 /HPF (0-3); SPECIFIC GRAVITY URINE AUTO 1.017 (1.002-1.035); SQUAMOUS EPITHELIAL CELL UR AU 9 /HPF (0-6); UROBILINOGEN, URINE AUTO 0.2 mg/dL (0.0-2.0); WBC, URINE AUTO TNTC /HPF (0-3)
== END ==
LOC: M SFHCADAM 11:08
PROVIDERS: ATTEND Family Medicine
DX: N39.0 Urinary tract infection, site not specified (principal)

== ENCOUNTER → 2023-07-15 | Outpatient (CLI) | payer OTHER ==
[~2023-07-15] MED LIST changes: +NITR-67 PO
== END ==
LOC: M ADAMS 11:22
PROVIDERS: ATTEND Family Medicine
DX: Z01.818 Encounter for other preprocedural examination (principal); I11.9 Hypertensive heart disease without heart failure

== ENCOUNTER → 2023-07-15 | Outpatient (REF) | payer OTHER ==
[2023-07-15 13:37] LABS: HEMATOCRIT 47.1 % (36.0-47.0); HEMOGLOBIN 14.8 g/dl (12.0-15.5); MEAN CORPUSCULAR HEMOGLOBIN 30.5 pg (27.0-33.0); MEAN CORPUSCULAR HGB CONC 31.4 g/dl (32.0-36.5); MEAN CORPUSCULAR VOLUME 96.9 fl (80.0-96.0); PLATELET COUNT, AUTOMATED 538 10^3/uL (150-450); RED BLOOD COUNT 4.86 10^6/uL (4.00-5.40); WHITE BLOOD COUNT 10.4 10^3/uL (4.0-10.0)
[2023-07-15 13:48] LABS: HEMOGLOBIN A1c 7.6 % (4.0-6.0)
[2023-07-15 13:59] LABS: BLOOD UREA NITROGEN 12 MG/DL (9-23); CALCIUM LEVEL 9.7 MG/DL (8.3-10.6); CARBON DIOXIDE LEVEL 26 MMOL/L (20-31); CHLORIDE LEVEL 104 MMOL/L (98-107); CREATININE FOR GFR 0.47 MG/DL (0.55-1.30); GLOMERULAR FILTRATION RATE > 60.0 (>32); GLUCOSE, FASTING 144 MG/DL (74-106); POTASSIUM SERUM 4.7 MMOL/L (3.5-5.1); SODIUM LEVEL 141 MMOL/L (136-145)
== END ==
LOC: M SFHCADAM 09:48
PROVIDERS: ATTEND Family Medicine
DX: Z01.818 Encounter for other preprocedural examination (principal); I11.9 Hypertensive heart disease without heart failure; E11.40 Type 2 diabetes mellitus with diabetic neuropathy, unspecified; N39.0 Urinary tract infection, site not specified

== ENCOUNTER → 2023-07-20 | Outpatient (REF) | payer OTHER ==
[2023-07-20 12:25] LABS: APPEARANCE, URINE CLOUDY (CLEAR); BACTERIA, URINE AUTO NEGATIVE (NEGATIVE); BILIRUBIN, URINE AUTO NEGATIVE (NEGATIVE); BLOOD, URINE BLOOD 2+ (NEGATIVE); CALCIUM OXALATE CRYSTALS MODERATE; COLOR, URINE YELLOW (YELLOW); GLUCOSE, URINE (UA) AUTO 2+ mg/dL (NEGATIVE); KETONE, URINE AUTO NEGATIVE (NEGATIVE); LEUKOCYTE ESTERASE, URINE AUTO 3+ (NEGATIVE); MUCUS, URINE SMALL (NEGATIVE); NITRITE, URINE AUTO NEGATIVE (NEGATIVE); PROTEIN, URINE AUTO 1+ mg/dL (NEGATIVE); RBC, URINE AUTO 94 /HPF (0-3); SPECIFIC GRAVITY URINE AUTO 1.019 (1.002-1.035); SQUAMOUS EPITHELIAL CELL UR AU 3 /HPF (0-6); UROBILINOGEN, URINE AUTO 0.2 mg/dL (0.0-2.0); WBC, URINE AUTO TNTC /HPF (0-3)
== END ==
LOC: M SFHCADAM 10:00
PROVIDERS: ATTEND Family Medicine
DX: N39.0 Urinary tract infection, site not specified (principal)

== ENCOUNTER → 2023-07-29 | Outpatient (REF) | payer OTHER ==
[2023-07-29 21:17] LABS: AMORPHOUS SEDIMENT SMALL (NEGATIVE); APPEARANCE, URINE CLOUDY (CLEAR); BACTERIA, URINE AUTO NEGATIVE (NEGATIVE); BILIRUBIN, URINE AUTO NEGATIVE (NEGATIVE); BLOOD, URINE BLOOD NEGATIVE (NEGATIVE); COLOR, URINE YELLOW (YELLOW); GLUCOSE, URINE (UA) AUTO 2+ mg/dL (NEGATIVE); KETONE, URINE AUTO NEGATIVE (NEGATIVE); LEUKOCYTE ESTERASE, URINE AUTO 2+ (NEGATIVE); NITRITE, URINE AUTO NEGATIVE (NEGATIVE); PROTEIN, URINE AUTO 1+ mg/dL (NEGATIVE); RBC, URINE AUTO 4 /HPF (0-3); SPECIFIC GRAVITY URINE AUTO 1.013 (1.002-1.035); SQUAMOUS EPITHELIAL CELL UR AU 0 /HPF (0-6); UROBILINOGEN, URINE AUTO 0.2 mg/dL (0.0-2.0); WBC, URINE AUTO 87 /HPF (0-3)
== END ==
LOC: M LAB REF 21:00
PROVIDERS: ATTEND Urology
DX: Z01.818 Encounter for other preprocedural examination (principal); N39.0 Urinary tract infection, site not specified

== ENCOUNTER 2023-08-05 09:56 | Day surgery (SDC) | payer MEDICARE ==
[~2023-08-05] VITALS: Ht 160 cm; Wt 92.8 kg
[~2023-08-05 09:56] MED LIST changes: -ASPI-161 PO; +ASPI-615 PO; +DEXTROSE 50% 50ML SYRINGE IV PRN; +GLUCAGON INJ 1MG VIAL SC PRN; +GLUCOSE 4GM CHEW TABLET PO PRN; +HYDROMORPHONE HCL 0.5 MG/ 0.5 ML SYRINGE IV PRN; +INSULIN LISPRO (NovoLOG) PER UNIT SC PRN; +LR 1,000 ML IV SCH; -MIRA1POW3 PO; +MIRA33506 PO; +ONDANSETRON 4MG 2ML VIAL IV PRN; -OXYB5TAB11 PO; +OXYB5TAB14 PO; +fentaNYL 100 MCG/2 ML INJECTION IV PRN; +oxyCODONE 5MG TAB PO PRN
[2023-08-05] MEDS ORDERED: LR 1,000 ML IV SCH (10:30)
[2023-08-05] MEDS ORDERED: LIDOCAINE 2% 100MG/5ML SDV (FOR ANES.) As Ordered ONE (11:36)
[2023-08-05] MEDS ORDERED: propofoL 200 MG/20 ML VIAL As Ordered ONE (11:36)
[2023-08-05] MEDS ORDERED: ONDANSETRON 4MG 2ML VIAL As Ordered ONE (11:36)
[2023-08-05] MEDS ORDERED: fentaNYL 100 MCG/2 ML INJECTION As Ordered ONE (11:39)
[2023-08-05] MEDS ORDERED: ACETAMINOPHEN 1000MG 100ML IV BAG As Ordered ONE (13:35)
[2023-08-05] MEDS: ceFAZolin SOD 2 GM in IV 1 EA IV ONE (13:41)
[2023-08-05] MEDS: ISOVUE-300 61% 100ML VIAL As Ordered ONE (13:59)
[2023-08-05] MEDS: LR 1,000 ML IV SCH (14:55)
[2023-08-05] MEDS ORDERED: fentaNYL 100 MCG/2 ML INJECTION IV PRN (14:55)
[2023-08-05] MEDS ORDERED: ONDANSETRON 4MG 2ML VIAL IV PRN (14:55)
[2023-08-05] MEDS ORDERED: GLUCOSE 4GM CHEW TABLET PO PRN (15:10)
[2023-08-05] MEDS ORDERED: GLUCAGON INJ 1MG VIAL SC PRN (15:10)
[2023-08-05] MEDS ORDERED: CEPH500C PO (15:10)
[2023-08-05] MEDS ORDERED: DEXTROSE 50% 50ML SYRINGE IV PRN (15:10)
[2023-08-05] MEDS: INSULIN LISPRO (NovoLOG) PER UNIT SC PRN (15:14)
[2023-08-05 16:04] VITALS: BP 158/73; TEMP 98.2; O2SAT 97
[2023-08-05] MEDS ORDERED: PERCOCET 5MG/325MG TAB PO PRN (16:05)
[2023-08-15 21:07] LABS: Ca Ox Monohydrate 30 % (.); Size 7x5 mm (.)
== END 2023-08-05 16:23 | disposition home or self-care (01) ==
LOC: M SDC 09:56
PROVIDERS: ATTEND Urology
DX: N13.2 Hydronephrosis with renal and ureteral calculous obstruction (principal); R32 Unspecified urinary incontinence; I10 Essential (primary) hypertension; Z87.442 Personal history of urinary calculi; Z90.49 Acquired absence of other specified parts of digestive tract; E11.9 Type 2 diabetes mellitus without complications; E78.00 Pure hypercholesterolemia, unspecified; I69.311 Memory deficit following cerebral infarction; Z79.899 Other long term (current) drug therapy; Z79.82 Long term (current) use of aspirin; Z79.84 Long term (current) use of oral hypoglycemic drugs; Z85.3 Personal history of malignant neoplasm of breast; Z88.2 Allergy status to sulfonamides; Z88.1 Allergy status to other antibiotic agents
CPT/HCPCS: 52356; 76000; 82365; C1769; C1894; C2617; J0131; J0690; J1100; J1815; J2405; J3010; Q9967

== ENCOUNTER → 2023-10-21 | Outpatient (REF) | payer OTHER ==
[~2023-10-21] MED LIST changes: -DEXTROSE 50% 50ML SYRINGE IV PRN; -GLUCAGON INJ 1MG VIAL SC PRN; -GLUCOSE 4GM CHEW TABLET PO PRN; -HYDROMORPHONE HCL 0.5 MG/ 0.5 ML SYRINGE IV PRN; -INSULIN LISPRO (NovoLOG) PER UNIT SC PRN; -LR 1,000 ML IV SCH; -ONDANSETRON 4MG 2ML VIAL IV PRN; -fentaNYL 100 MCG/2 ML INJECTION IV PRN; -oxyCODONE 5MG TAB PO PRN
[2023-10-21 18:40] LABS: HEMATOCRIT 44.2 % (36.0-47.0); HEMOGLOBIN 14.3 g/dl (12.0-15.5); MEAN CORPUSCULAR HEMOGLOBIN 30.5 pg (27.0-33.0); MEAN CORPUSCULAR HGB CONC 32.4 g/dl (32.0-36.5); MEAN CORPUSCULAR VOLUME 94.2 fl (80.0-96.0); PLATELET COUNT, AUTOMATED 463 10^3/uL (150-450); RED BLOOD COUNT 4.69 10^6/uL (4.00-5.40); WHITE BLOOD COUNT 8.9 10^3/uL (4.0-10.0)
[2023-10-21 18:44] LABS: HEMOGLOBIN A1c 7.6 % (4.0-6.0)
[2023-10-21 19:07] LABS: ALBUMIN 3.6 G/DL (3.2-5.2); ALKALINE PHOSPHATASE 66 U/L (46-116); ALT/SGPT 34 U/L (7.0-40); AST/SGOT 25 U/L (<34); BILIRUBIN,TOTAL 0.5 MG/DL (0.3-1.2); BLOOD UREA NITROGEN 14 MG/DL (9-23); CALCIUM LEVEL 10.5 MG/DL (8.3-10.6); CARBON DIOXIDE LEVEL 25 MMOL/L (20-31); CHLORIDE LEVEL 102 MMOL/L (98-107); CHOLESTEROL LEVEL 123 MG/DL (<200); CHOLESTEROL RISK RATIO 2.82 (<5); CREATININE FOR GFR 0.47 MG/DL (0.55-1.30); FREE T4 0.93 NG/DL (0.89-1.76); GLOMERULAR FILTRATION RATE > 60.0 (>32); GLUCOSE, FASTING 149 MG/DL (74-106); HDL CHOLESTEROL 43.6 MG/DL (>40); LDL CHOLESTEROL 44.8 MG/DL (<100); NON-HDL-C 79.4 MG/DL; POTASSIUM SERUM 4.4 MMOL/L (3.5-5.1); SODIUM LEVEL 136 MMOL/L (136-145); TOTAL PROTEIN 7.4 G/DL (5.7-8.2); TRIGLYCERIDES LEVEL 173 MG/DL (<150)
== END ==
LOC: M SFHCADAM 13:38
PROVIDERS: ATTEND Family Medicine
DX: I11.9 Hypertensive heart disease without heart failure (principal); E11.40 Type 2 diabetes mellitus with diabetic neuropathy, unspecified; E78.5 Hyperlipidemia, unspecified; E03.9 Hypothyroidism, unspecified; I69.311 Memory deficit following cerebral infarction

== ENCOUNTER 2023-11-06 12:24 | Emergency (ER) | payer OTHER ==
[~2023-11-06] VITALS: Ht 160 cm; Wt 94.1 kg
[2023-11-06 13:44] LABS: RSV AMPLIFICATION NEGATIVE (NEGATIVE)
[2023-11-06] MEDS: IBUPROFEN 600MG TAB PO ONE (14:10)
[2023-11-06 14:40] VITALS: BP 137/65; TEMP 98.1; O2SAT 93
== END 2023-11-06 14:45 | disposition home or self-care (01) ==
LOC: M ED 12:24
DX: M79.18 Myalgia, other site (principal); M71.21 Synovial cyst of popliteal space [Baker], right knee; M71.22 Synovial cyst of popliteal space [Baker], left knee; E11.9 Type 2 diabetes mellitus without complications; I10 Essential (primary) hypertension; E78.5 Hyperlipidemia, unspecified; Z88.2 Allergy status to sulfonamides; Z88.8 Allergy status to other drugs, medicaments and biological substances; Z79.1 Long term (current) use of non-steroidal anti-inflammatories (NSAID); Z79.84 Long term (current) use of oral hypoglycemic drugs; Z79.899 Other long term (current) drug therapy

== ENCOUNTER → 2024-02-14 | Outpatient (CLI) | payer OTHER | LOC: M ADAMS 14:15 | PROVIDERS: ATTEND Urology | DX: N20.0 Calculus of kidney (principal) ==

== ENCOUNTER → 2024-04-18 | Outpatient (REF) | payer OTHER ==
[~2024-04-18] MED LIST changes: -SENN-111 PO; +SENN-165 PO
[2024-04-18 13:16] LABS: ALBUMIN 3.6 G/DL (3.2-5.2); ALKALINE PHOSPHATASE 74 U/L (46-116); ALT/SGPT 41 U/L (7.0-40); AST/SGOT 37 U/L (<34); BILIRUBIN,TOTAL 0.7 MG/DL (0.3-1.2); BLOOD UREA NITROGEN 10 MG/DL (9-23); CALCIUM LEVEL 9.9 MG/DL (8.3-10.6); CARBON DIOXIDE LEVEL 30 MMOL/L (20-31); CHLORIDE LEVEL 102 MMOL/L (98-107); CREATININE FOR GFR 0.46 MG/DL (0.55-1.30); GLOMERULAR FILTRATION RATE > 60.0 (>32); GLUCOSE, FASTING 148 MG/DL (74-106); POTASSIUM SERUM 4.6 MMOL/L (3.5-5.1); SODIUM LEVEL 141 MMOL/L (136-145); TOTAL PROTEIN 7.5 G/DL (5.7-8.2)
== END ==
LOC: M SFHCADAM 08:09
PROVIDERS: ATTEND Family Medicine
DX: E11.40 Type 2 diabetes mellitus with diabetic neuropathy, unspecified (principal)

== ENCOUNTER → 2024-08-08 | Outpatient (REF) | payer OTHER ==
[2024-08-08 13:23] LABS: HEMOGLOBIN 14.5 g/dl (12.0-15.5); MEAN CORPUSCULAR HEMOGLOBIN 30.6 pg (27.0-33.0); MEAN CORPUSCULAR HGB CONC 32.2 g/dl (32.0-36.5); MEAN CORPUSCULAR VOLUME 94.9 fl (80.0-96.0); PLATELET COUNT, AUTOMATED 496 10^3/uL (150-450); RED BLOOD COUNT 4.74 10^6/uL (4.00-5.40); WHITE BLOOD COUNT 10.1 10^3/uL (4.0-10.0)
[2024-08-08 13:42] LABS: HEMOGLOBIN A1c 7.9 % (4.0-6.0)
[2024-08-08 13:50] LABS: ALBUMIN 3.7 G/DL (3.2-5.2); ALKALINE PHOSPHATASE 71 U/L (35-104); ALT/SGPT 31 U/L (7.0-40); AST/SGOT 30 U/L (<34); BILIRUBIN,TOTAL 0.6 MG/DL (0.3-1.2); BLOOD UREA NITROGEN 12 MG/DL (9-23); CALCIUM LEVEL 9.7 MG/DL (8.3-10.6); CARBON DIOXIDE LEVEL 26 MMOL/L (20-31); CHLORIDE LEVEL 102 MMOL/L (98-107); CHOLESTEROL LEVEL 150 MG/DL (<200); CHOLESTEROL RISK RATIO 3.04 (<5); CREATININE FOR GFR 0.48 MG/DL (0.55-1.30); GLOMERULAR FILTRATION RATE > 60.0 (>32); GLUCOSE, FASTING 167 MG/DL (74-106); HDL CHOLESTEROL 49.2 MG/DL (>40); LDL CHOLESTEROL 67.6 MG/DL (<100); NON-HDL-C 100.8 MG/DL; POTASSIUM SERUM 4.7 MMOL/L (3.5-5.1); SODIUM LEVEL 141 MMOL/L (136-145); TOTAL PROTEIN 7.7 G/DL (5.7-8.2); TRIGLYCERIDES LEVEL 166 MG/DL (<150)
[2024-08-08 13:51] LABS: FREE T4 1.24 NG/DL (0.89-1.76); THYROID STIMULATING HORMONE 2.334 uIU/ML (0.55-4.78)
== END ==
LOC: M SFHCADAM 09:10
PROVIDERS: ATTEND Family Medicine
DX: M15.9 Polyosteoarthritis, unspecified (principal); E78.5 Hyperlipidemia, unspecified; E03.9 Hypothyroidism, unspecified; E11.40 Type 2 diabetes mellitus with diabetic neuropathy, unspecified

== ENCOUNTER 2024-09-07 04:05 | Emergency (ER) | payer MEDICARE ==
[~2024-09-07] VITALS: Ht 160 cm; Wt 93.6 kg
[2024-09-07 05:02] LABS: BASO # 0.1 10^3/uL (0.0-0.2); BASO % 0.5 % (0.0-1.0); EOS # 0.7 10^3/uL (0.0-0.5); EOS % 7.2 % (0.0-3.0); HEMATOCRIT 42.8 % (36.0-47.0); LYMPH # 2.5 10^3/uL (1.5-5.0); LYMPH % 25.2 % (24.0-44.0); MEAN CORPUSCULAR HGB CONC 32.7 g/dl (32.0-36.5); MEAN CORPUSCULAR VOLUME 91.8 fl (80.0-96.0); MONO # 0.9 10^3/uL (0.0-0.8); MONO % 8.9 % (2.0-8.0); NEUTROPHILS # 5.7 10^3/uL (1.5-8.5); PLATELET COUNT, AUTOMATED 455 10^3/uL (150-450); RED BLOOD COUNT 4.66 10^6/uL (4.00-5.40); WHITE BLOOD COUNT 9.8 10^3/uL (4.0-10.0)
[2024-09-07 05:13] LABS: APPEARANCE, URINE HAZY (CLEAR); BACTERIA, URINE AUTO NEGATIVE (NEGATIVE); BILIRUBIN, URINE AUTO NEGATIVE (NEGATIVE); BLOOD, URINE BLOOD NEGATIVE (NEGATIVE); COLOR, URINE YELLOW (YELLOW); GLUCOSE, URINE (UA) AUTO NEGATIVE (NEGATIVE); KETONE, URINE AUTO NEGATIVE (NEGATIVE); LEUKOCYTE ESTERASE, URINE AUTO 2+ (NEGATIVE); MUCUS, URINE SMALL (NEGATIVE); NITRITE, URINE AUTO NEGATIVE (NEGATIVE); PROTEIN, URINE AUTO 1+ mg/dL (NEGATIVE); RBC, URINE AUTO 2 /HPF (0-3); SPECIFIC GRAVITY URINE AUTO 1.014 (1.002-1.035); SQUAMOUS EPITHELIAL CELL UR AU 1 /HPF (0-6); UROBILINOGEN, URINE AUTO 0.2 mg/dL (0.0-2.0); WBC, URINE AUTO 84 /HPF (0-3)
[2024-09-07 05:19] LABS: ALBUMIN 3.6 G/DL (3.2-5.2); ALKALINE PHOSPHATASE 68 U/L (35-104); ALT/SGPT 29 U/L (7.0-40); AST/SGOT 23 U/L (<34); BILIRUBIN,TOTAL 0.7 MG/DL (0.3-1.2); BLOOD UREA NITROGEN 10 MG/DL (9-23); CALCIUM LEVEL 9.6 MG/DL (8.3-10.6); CARBON DIOXIDE LEVEL 22 MMOL/L (20-31); CHLORIDE LEVEL 104 MMOL/L (98-107); CREATININE FOR GFR 0.48 MG/DL (0.55-1.30); GLOMERULAR FILTRATION RATE > 60.0 (>32); GLUCOSE, FASTING 160 MG/DL (74-106); POTASSIUM SERUM 4.3 MMOL/L (3.5-5.1); SODIUM LEVEL 140 MMOL/L (136-145); TOTAL PROTEIN 7.5 G/DL (5.7-8.2)
[2024-09-07] MEDS: KETOROLAC 30 MG/ML 1ML VIAL IV ONE (06:08)
[2024-09-07] MEDS ORDERED: ACET-907 PO (09:01)
[2024-09-07 10:11] VITALS: BP 160/76; TEMP 97.8; O2SAT 92
== END 2024-09-07 11:15 | disposition home or self-care (01) ==
LOC: M ED 04:05
DX: S29.011A Strain of muscle and tendon of front wall of thorax, initial encounter (principal); Y92.9 Unspecified place or not applicable; Y93.9 Activity, unspecified; Y99.9 Unspecified external cause status; E11.9 Type 2 diabetes mellitus without complications; I10 Essential (primary) hypertension; E78.5 Hyperlipidemia, unspecified; Z88.2 Allergy status to sulfonamides; Z79.1 Long term (current) use of non-steroidal anti-inflammatories (NSAID); Z79.2 Long term (current) use of antibiotics; Z79.84 Long term (current) use of oral hypoglycemic drugs; Z79.899 Other long term (current) drug therapy
CPT/HCPCS: 71250; 80053; 81001; 85025; 96374; 99284; J1885

== ENCOUNTER 2024-09-14 05:16 | Emergency (ER) | payer MEDICARE ==
[~2024-09-14] VITALS: Ht 160 cm; Wt 94.1 kg
[~2024-09-14 05:16] MED LIST changes: +ACET-907 PO
[2024-09-14 05:49] LABS: BASO % 0.4 % (0.0-1.0); EOS # 0.6 10^3/uL (0.0-0.5); HEMATOCRIT 40.7 % (36.0-47.0); HEMOGLOBIN 13.4 g/dl (12.0-15.5); LYMPH # 2.1 10^3/uL (1.5-5.0); LYMPH % 23.1 % (24.0-44.0); MEAN CORPUSCULAR HGB CONC 32.9 g/dl (32.0-36.5); MEAN CORPUSCULAR VOLUME 91.1 fl (80.0-96.0); MONO # 0.7 10^3/uL (0.0-0.8); MONO % 7.7 % (2.0-8.0); NEUTROPHILS # 5.8 10^3/uL (1.5-8.5); NEUTROPHILS % 62.6 % (36.0-66.0); PLATELET COUNT, AUTOMATED 439 10^3/uL (150-450); RED BLOOD COUNT 4.47 10^6/uL (4.00-5.40); WHITE BLOOD COUNT 9.2 10^3/uL (4.0-10.0)
[2024-09-14 06:12] LABS: ALBUMIN 3.4 G/DL (3.2-5.2); ALKALINE PHOSPHATASE 61 U/L (35-104); ALT/SGPT 30 U/L (7.0-40); AST/SGOT 26 U/L (<34); BILIRUBIN,TOTAL 0.5 MG/DL (0.3-1.2); BLOOD UREA NITROGEN 14 MG/DL (9-23); CALCIUM LEVEL 9.1 MG/DL (8.3-10.6); CARBON DIOXIDE LEVEL 21 MMOL/L (20-31); CHLORIDE LEVEL 107 MMOL/L (98-107); CREATININE FOR GFR 0.41 MG/DL (0.55-1.30); GLOMERULAR FILTRATION RATE > 60.0 (>32); GLUCOSE, FASTING 149 MG/DL (74-106); POTASSIUM SERUM 4.1 MMOL/L (3.5-5.1); SODIUM LEVEL 141 MMOL/L (136-145); TOTAL PROTEIN 7.1 G/DL (5.7-8.2)
[2024-09-14] MEDS: ACETAMINOPHEN *IV* 1,000 MG in IV 1 EA IV ONE (06:33)
[2024-09-14 06:48] LABS: CK-MB VALUE MASS < 1.0 NG/ML (<3.6)
[2024-09-14 07:02] LABS: CPK CREATINE PHOSPHOKINASE 41 U/L (34-145); MB/CK RELATIVE INDEX 2.43 (< OR =4)
[2024-09-14 07:26] LABS: CK-MB VALUE MASS < 1.0 NG/ML (<3.6)
[2024-09-14 07:33] LABS: CPK CREATINE PHOSPHOKINASE 39 U/L (34-145); MB/CK RELATIVE INDEX 2.56 (< OR =4)
[2024-09-14] MEDS ORDERED: MYRB50TA PO (07:33)
[2024-09-14] MEDS ORDERED: ACET1TAB55 PO (07:33)
[2024-09-14] MEDS ORDERED: SODI88SP (07:33)
[2024-09-14] MEDS ORDERED: HOME MED LIST COMPLETE! XX SCH (07:35)
[2024-09-14] MEDS ORDERED: ISOVUE-370 76% 100ML VIAL As Ordered ONE (07:47)
[2024-09-14] MEDS: FLEET ENEMA PR STA (08:57)
[2024-09-14 09:31] VITALS: BP 143/67
[2024-09-14] MEDS ORDERED: COLA100C5 PO (09:37)
[2024-09-14 09:46] VITALS: TEMP 96.8; O2SAT 90
== END 2024-09-14 10:06 | disposition home or self-care (01) ==
LOC: M ED 05:16
DX: R10.9 Unspecified abdominal pain (principal); I44.0 Atrioventricular block, first degree; I25.2 Old myocardial infarction; I45.81 Long QT syndrome; E11.9 Type 2 diabetes mellitus without complications; I10 Essential (primary) hypertension; E78.5 Hyperlipidemia, unspecified; E03.9 Hypothyroidism, unspecified; Z88.2 Allergy status to sulfonamides; Z88.8 Allergy status to other drugs, medicaments and biological substances; Z79.1 Long term (current) use of non-steroidal anti-inflammatories (NSAID); Z79.84 Long term (current) use of oral hypoglycemic drugs; Z79.899 Other long term (current) drug therapy
CPT/HCPCS: 74177; 80053; 82550; 82553; 84484; 85025; 93005; 96365; 99285; J0131; Q9967

== ENCOUNTER → 2025-03-08 | Outpatient (REF) | payer MEDICARE ==
[~2025-03-08] MED LIST changes: +COLA100C5 PO; -FLOM0.4C39 PO; +HYDR12.510 PO; -HYDR12CA PO; +MYRB50TA PO; +SLOW1TAB3 PO; -SLOWTAB2 PO; +SODI88SP; +TAMS-18 PO
== END ==
PROVIDERS: ATTEND Family Medicine
DX: Z11.52 Encounter for screening for COVID-19 (principal)

== ENCOUNTER → 2025-04-02 | Outpatient (REF) | payer MEDICARE ==
[2025-04-02 18:49] LABS: APPEARANCE, URINE HAZY (CLEAR); BACTERIA, URINE AUTO 1+ (NEGATIVE); BILIRUBIN, URINE AUTO NEGATIVE (NEGATIVE); BLOOD, URINE BLOOD NEGATIVE (NEGATIVE); GLUCOSE, URINE (UA) AUTO NEGATIVE (NEGATIVE); KETONE, URINE AUTO NEGATIVE (NEGATIVE); LEUKOCYTE ESTERASE, URINE AUTO 3+ (NEGATIVE); MUCUS, URINE SMALL (NEGATIVE); NITRITE, URINE AUTO NEGATIVE (NEGATIVE); PROTEIN, URINE AUTO NEGATIVE (NEGATIVE); RBC, URINE AUTO 1 /HPF (0-3); SPECIFIC GRAVITY URINE AUTO 1.008 (1.002-1.035); SQUAMOUS EPITHELIAL CELL UR AU 2 /HPF (0-6); UROBILINOGEN, URINE AUTO 0.2 mg/dL (0.0-2.0); WBC, URINE AUTO 88 /HPF (0-3)
== END ==
LOC: M SMT 17:27
PROVIDERS: ATTEND Urology
DX: N39.0 Urinary tract infection, site not specified (principal)

== ENCOUNTER → 2025-04-08 | Outpatient (CLI) | payer MEDICARE | LOC: M PLAIMG 09:22 | PROVIDERS: ATTEND Urology | DX: N20.0 Calculus of kidney (principal) ==

== ENCOUNTER → 2025-04-10 | Outpatient (REF) | payer MEDICARE ==
[2025-04-10 11:24] LABS: PLATELET COUNT, AUTOMATED 391 10^3/uL (150-450)
[2025-04-10 11:42] LABS: ESTIMATED AVERAGE GLUCOSE 140.0 MG/DL (60-110)
[2025-04-10 11:59] LABS: FREE T4 1.13 NG/DL (0.89-1.76)
[2025-04-10 12:08] LABS: ALT/SGPT 20 U/L (7.0-40); AST/SGOT 21 U/L (<34); CALCIUM LEVEL 9.0 MG/DL (8.3-10.6); CARBON DIOXIDE LEVEL 24 MMOL/L (20-31); CHLORIDE LEVEL 102 MMOL/L (98-107); CREATININE FOR GFR 0.49 MG/DL (0.55-1.30); GLOMERULAR FILTRATION RATE > 90.0 (>32); POTASSIUM SERUM 4.0 MMOL/L (3.5-5.1); SODIUM LEVEL 137 MMOL/L (136-145)
== END ==
PROVIDERS: ATTEND Physician Assistant
DX: I11.9 Hypertensive heart disease without heart failure (principal); E11.49 Type 2 diabetes mellitus with other diabetic neurological complication; E03.9 Hypothyroidism, unspecified

== ENCOUNTER → 2025-04-29 | Outpatient (REF) | payer MEDICARE | LOC: M LAB REF 16:52 | PROVIDERS: ATTEND Neuromusculoskeletal Medicine, Sports Medicine | DX: M17.12 Unilateral primary osteoarthritis, left knee (principal) ==

== ENCOUNTER → 2025-07-02 | Outpatient (CLI) | payer MEDICARE ==
[~2025-07-02] MED LIST changes: -BACTDSTA PO; +DICL20GE TP; +NYST1POW3 TOP; -SODI88SP; +SODI88SP7; +SULF-8 PO
== END ==
LOC: M RAD 11:48
PROVIDERS: ATTEND Neuromusculoskeletal Medicine, Sports Medicine
DX: M17.12 Unilateral primary osteoarthritis, left knee (principal); M16.0 Bilateral primary osteoarthritis of hip; M71.22 Synovial cyst of popliteal space [Baker], left knee; M72.2 Plantar fascial fibromatosis

== ENCOUNTER 2025-07-09 13:28 | Outpatient (RCR) | payer MEDICARE ==
[~2025-07-09 13:28] MED LIST changes: +DICL20GE TOP; -DICL20GE TP
[2025-07-16] MEDS ORDERED: CALCTAB62 PO (16:25)
[2025-07-17] MEDS ORDERED: ASPI81TAEC PO (12:29)
[2025-07-17] MEDS ORDERED: DILA2TAB6 PO (12:40)
== END 2025-07-10 ==
LOC: M PT 13:28
PROVIDERS: ATTEND Neuromusculoskeletal Medicine, Sports Medicine
DX: M17.12 Unilateral primary osteoarthritis, left knee (principal)

== ENCOUNTER → 2025-07-09 | Outpatient (CLI) | payer MEDICARE ==
[2025-07-09 15:30] LABS: BASO # 0.0 10^3/uL (0.0-0.2); BASO % 0.4 % (0.0-1.0); EOS # 0.2 10^3/uL (0.0-0.5); EOS % 1.8 % (0.0-3.0); LYMPH # 2.1 10^3/uL (1.5-5.0); LYMPH % 22.4 % (24.0-44.0); MONO # 0.6 10^3/uL (0.0-0.8); MONO % 6.7 % (2.0-8.0); NEUTROPHILS # 6.5 10^3/uL (1.5-8.5); NEUTROPHILS % 68.4 % (36.0-66.0); PLATELET COUNT, AUTOMATED 452 10^3/uL (150-450)
[2025-07-09 16:03] LABS: ALT/SGPT 22.0 U/L (7.0-40); AST/SGOT 25.0 U/L (<34); CALCIUM LEVEL 11.0 MG/DL (8.3-10.6); CARBON DIOXIDE LEVEL 23.0 MMOL/L (20-31); CHLORIDE LEVEL 102.0 MMOL/L (98-107); CREATININE FOR GFR 0.56 MG/DL (0.55-1.30); GLOMERULAR FILTRATION RATE 89.9 (>32); POTASSIUM SERUM 4.2 MMOL/L (3.5-5.1); SODIUM LEVEL 139.0 MMOL/L (136-145)
== END ==
LOC: M LAB 14:50
PROVIDERS: ATTEND Neuromusculoskeletal Medicine, Sports Medicine
DX: M17.12 Unilateral primary osteoarthritis, left knee (principal); Z79.899 Other long term (current) drug therapy

== ENCOUNTER → 2025-07-10 | Outpatient (REF) | payer MEDICARE ==
[~2025-07-10] MED LIST changes: -DICL20GE TOP; +DICL20GE TP
== END ==
LOC: M LAB REF 16:15
PROVIDERS: ATTEND Neuromusculoskeletal Medicine, Sports Medicine
DX: M17.12 Unilateral primary osteoarthritis, left knee (principal)